=== PATIENT | female | born 1940 | race Caucasian/White ===

== ENCOUNTER → 2016-08-25 | Outpatient (CLI) | payer OTHER | LOC: FIMAGING 10:56 | DX: Z12.31 Encounter for screening mammogram for malignant neoplasm of breast (principal); Z80.3 Family history of malignant neoplasm of breast | CPT/HCPCS: G0202 ==

== ENCOUNTER 2016-11-04 12:37 | Emergency (ER) | payer OTHER ==
[2016-11-04 13:01] VITALS: BP 179/94; PULSE 87; RESP 18; TEMP 97.2; O2SAT 92
--- NOTE | 2016-11-04 14:02 | EDPHY ---
H & P Time Seen by Provider: 11/04/16 13:45 HPI/ROS: This patient complains of left trapezius and rhomboid region pain extending to the left lateral neck over the past week since having a dry saline which she was lifting multiple objects. She reports that the pain is moderate to severe and she is having insufficient relief from Tylenol and ibuprofen. She does have Dilaudid at home that she occasionally takes for her neck pain associated with arthritis but she prefers not to take if she does not have to. She has not taken any today. She does report some occasional paresthesias in left arm associated with this. She denies any acute trauma. ROS: No recent head injury Musculoskeletal: No midline neck or back pain. Neuro: No focal weakness. No numbness. No bowel or bladder incontinence. 5 point ROS is otherwise negative. Smoking Status: Never smoked Physical Exam: Physical Exam Vital signs are normal. General: No acute distress HEENT: Atraumatic. No cranial tenderness. Neck: No midline tenderness. She has left trapezius tenderness and muscle spasm extends in left lateral paraspinous cervical musculature. This also extends inferiorly to the rhomboid region. No right-sided neck tenderness. She retains good range of motion of her neck and has mild increase in pain with forward flexion and lateral flexion away from the affected side. Eyes: Pupils equal and react to light. Extraocular motions are intact. Lungs: No respiratory distress. Cardiac: Brisk capillary refill is intact throughout. Pulses are 2+ and symmetric in the affected extremity. Skin: No rash or pallor. Neuro: GCS 15. Despite paresthesias left arm she has normal sensation throughout. She has weak but symmetric biceps, triceps and brachioradialis DTRs bilaterally. Patellar DTRs are difficult to elicit part from knee replacement surgery. Achilles are weak but symmetric bilaterally she maintains 5/5 strength in bilateral upper and lower extremities throughout Initial differential diagnosis: Muscle strain, chronic arthritic neck pain worsen with activity, disc herniation, no evidence of cauda equina Constitutional: Initial Vital Signs Temperature (C) 36.2 C 11/04/16 12:45 Heart Rate 87 11/04/16 12:45 Respiratory Rate 18 11/04/16 12:45 Blood Pressure 179/94 H 11/04/16 12:45 O2 Sat (%) 92 11/04/16 12:45 O2 Delivery Mode Room Air Allergies/Adverse Reactions: Antihistamines - Piperazine Allergy (Verified 11/04/16 12:57) dicyclomine HCl [From Bentyl] Allergy (Verified 11/04/16 12:57) Sulfa (Sulfonamide Antibiotics) Allergy (Verified 11/04/16 12:57) ANTIBIOTICS Allergy (Uncoded 11/04/16 12:57) narcotics Allergy (Uncoded 11/04/16 12:57) Home Medications: Medication Instructions Recorded Amitriptyline 04/03/10 DIAZEPAM 04/03/10 PROPRANOLOL HCL 04/03/10 Synthroid 04/03/10 Dilaudid 11/04/16 Methocarbamol [Robaxin 750 mg (*)] 750 - 1,500 mg PO QID PRN #30 tab 11/04/16 MDM/Departure - [facility] ED Course/Re-evaluation: Given this patient's history and findings are most consistent with muscle strain. I counseled regarding this. We discussed the possibility of pursuing radiographs but without acute trauma and no midline tenderness, no focal neuro deficits I think this would be low yield. Patient agrees to hold on imaging at this time with plan to follow up with her back specialist/neck specialist Dr. Altman for further evaluation if her symptoms not resolve with initial treatment plan of Robaxin, ibuprofen and Dilaudid. - Depart Disposition: Home, Routine, Self-Care Clinical Impression: Strain of neck Qualifiers: Encounter type: initial encounter Qualified Code(s): S16.1XXA - Strain of muscle, fascia and tendon at neck level, initial encounter Condition: Good Instructions: Cervical Strain (ED) Additional Instructions: Diagnosis: Neck strain Plan: Continue Tylenol-500 mg per 4-6 hours as needed for pain Add methocarbamol muscle relaxant, ibuprofen-400 mg per 6 hours to 3 times a day and finally Dilaudid in addition if needed. No driving, alcohol work on Robaxin or Dilaudid. Call Dr. Altman to arrange follow-up appointment for recheck in 3-7 days. Go to the emergency department for any significant worsening despite treatment plan. Prescriptions: Methocarbamol [Robaxin 750 mg (*)] 750 - 1,500 mg PO QID PRN #30 tab PRN Reason: Muscle Spasms Referrals: Jacquie Nicolas MD [Primary Care Provider] - As per Instructions Marivel Altman DO [Doctor of Osteopathy] - As per Instructions
== END 2016-11-04 14:16 | disposition home or self-care (01) ==
LOC: CED 12:37
DX: S16.1XXA Strain of muscle, fascia and tendon at neck level, initial encounter (principal); X50.0XXA Overexertion from strenuous movement or load, initial encounter

== ENCOUNTER 2017-01-16 12:51 | Inpatient (IN) | payer OTHER ==
--- NOTE | 2017-01-16 13:05 | CPEKG ---
Heart Rate: 100 RR Interval: 600 P-R Interval: 156 QRSD Interval: 84 QT Interval: 344 QTC Interval: 444 P [place]: 61 QRS [place]: 9 T Wave [place]: 5 EKG Severity - OTHERWISE NORMAL ECG - EKG Impression: SINUS TACHYCARDIA Electronically Signed By: Michelle Stroud 16-Jan-2017 14:46:43
--- NOTE | 2017-01-16 13:17 | EDPHY ---
H & P Time Seen by Provider: 01/16/17 12:58 HPI/ROS: HPI Chest and back pain, shortness of breath. 76-year-old female by private vehicle with her friend. This patient reports that Saturday evening she help to lift her disabled son who weighs approximately 400 lb off a couch. She takes care of her son at her house. She reports that Saturday she woke up and had which she describes as chest pain going from her clavicles down both sides of her lateral rib cage and radiating into the lateral posterior aspect of both sides of her back. She reports the pain is worse with movement and worse with taking a deep breath. She also reports that she has had some shortness of breath associated with this pain. She reports the pain is also worse with exertion and describes today she has had a sensation of pain radiating up into her anterior neck and jaw both on the right side and the left side. There is no history of fall or trauma. She reports having this pain about 2 weeks ago but was not as bad and it went away. At that time 2 weeks ago there was no history of heavy lifting. ROS: Constitutional: No fever, no chills. No weakness. Eyes: No discharge. No changes in vision. ENT: No sore throat. No nasal congestion or rhinorrhea. Respiratory: No cough. As above. Cardiac: As above, no palpitations. Gastrointestinal: No abdominal pain, no vomiting, no diarrhea. Genitourinary: No hematuria. No dysuria or increased frequency with urination. Musculoskeletal: No back pain. No neck pain. No myalgias or arthralgias. Skin: No rashes. Neurological: No headache. No focal weakness or altered sensation. Past medical history: Hypertension, knee replacement, SVT, hysterectomy, left carpal tunnel surgery, hypothyroidism, hyperparathyroidism, vertebral compression fracture. Primary care physician is Dr. Altman. Social history: Lives with her disabled OB son. She denies alcohol and smoking. Physical Exam: General Appearance: Alert, no distress. This patient is responding to questions appropriately and in full sentences. This patient appears well- hydrated and well-nourished. Eyes: Pupils equal and round no pallor or injection. No lid edema, erythema or injection. Respiratory: There are no retractions, lungs are clear to auscultation anteriorly with good air movement bilaterally. Mild tachypnea. Chest wall is stable to AP and lateral palpation. Cardiovascular: Regular rate and rhythm. Tachycardia. No murmur. Gastrointestinal: Abdomen is soft and nontender, no masses, bowel sounds normal. No focal tenderness at McBurney's point. No Magaña sign. Neurological: Motor sensory function is grossly intact. Cranial nerves are normal. Gait is normal. Skin: Warm and dry, no rashes. Musculoskeletal: Neck is supple and nontender. No pain on flexion of the neck. Extremities are symmetrical. All joints range without pain or impingement. Psychiatric: No agitation. No depression. Database: EKG: EKG time is 1:04 p.m.; EKG shows a narrow complex sinus tachycardia with ventricular rate of 100. The SD, QRS, QT intervals are within normal limits. There are no ST-T wave changes indicative of ischemic or injury pattern. No evidence of right heart strain. Interpreted by me. EKG time is 2:06 p.m.; EKG shows a narrow complex normal sinus rhythm with a ventricular rate of 92. The SD, QRS, QT intervals are within normal limits. Borderline T-wave abnormalities in inferior leads There are no ST-T wave changes indicative of ischemic or injury pattern. No evidence of right heart strain. This EKG is otherwise unchanged from prior. Interpreted by me. Imaging: Chest x-ray AP portable; the cardiac mediastinal silhouette is unremarkable. No evidence of infiltrate or pneumothorax. Basilar atelectasis on the left versus small effusion. No acute cardiopulmonary disease process noted. Interpreted by me. CT angiogram of chest; no evidence of pulmonary embolism. Emphysema noted. Bibasilar atelectasis. Otherwise unremarkable. Results were discussed with staff radiologist Dr. Rudolph Bennett. Procedures: Emergency department course: IV placed. She was placed on a cotton tipper. Chest x-ray and EKG obtained and reviewed by myself. 1:45 p.m., D-dimer elevated, CT angiogram of chest discussed with patient. She endorses. She will be given 500 cc of IV normal saline. 2:00 p.m., patient re-evaluated. She is currently pain-free. I discussed the results of her elevated troponin and the definite need for admission. She endorses. She has been given 324 mg of chewed aspirin. I will consult with hospitalist regarding IV heparin prior to transfer. EKG is being repeated at this time. 2:15 p.m., spoke with hospitalist, Dr. Flanagan. Patient accepted for transfer and admission to the PCU under the care of the hospitalist service. Heparin will be held until patient evaluated by Dr. Flanagan. Patient is chest pain- free. Patient transferred by ambulance in stable condition. 2:50 p.m., results of CT angiogram discussed with Dr. Flanagan. Patient is currently chest pain-free. Vital signs are stable. Patient transferred by ambulance in stable condition. Differential Diagnosis: The differential diagnosis on this patient includes but is not limited to musculoskeletal chest pain, pulmonary embolism, acute coronary syndrome. Aortic dissection, myocarditis, pericarditis, pneumonia, congestive heart failure unlikely. This represents a partial list of diagnoses considered. These considerations are based on history, physical exam, past history, reassessment and diagnostic testing. Smoking Status: Never smoked Constitutional: Initial Vital Signs Temperature (C) 37.1 C 01/16/17 13:04 Heart Rate 71 01/16/17 13:04 Respiratory Rate 18 01/16/17 13:04 Blood Pressure 185/57 H 01/16/17 13:04 O2 Sat (%) 97 01/16/17 13:04 O2 Delivery Mode Room Air O2 (L/minute) 2 Allergies/Adverse Reactions: Antihistamines - Piperazine Allergy (Verified 11/04/16 12:57) dicyclomine HCl [From Bentyl] Allergy (Verified 11/04/16 12:57) Sulfa (Sulfonamide Antibiotics) Allergy (Verified 11/04/16 12:57) ANTIBIOTICS Allergy (Uncoded 11/04/16 12:57) narcotics Allergy (Uncoded 11/04/16 12:57) Home Medications: Medication Instructions Recorded Amitriptyline 04/03/10 DIAZEPAM 04/03/10 PROPRANOLOL HCL 04/03/10 Synthroid 04/03/10 Dilaudid 11/04/16 Methocarbamol [Robaxin 750 mg (*)] 750 - 1,500 mg PO QID PRN #30 tab 11/04/16 Medical Decision Making - Diagnostics Imaging Results: Imaging Impressions Chest X-Ray 01/16/17 13:01 Impression: Hypoventilatory chest with probable bibasilar atelectasis. Chest/Thorax CTA 01/16/17 13:44 Impression: 1. Negative CT examination of the chest for acute pulmonary thromboembolic disease. 2. Bilateral lower lobe atelectasis. 3. Focal reticular nodular infiltrate right upper lobe suggestive of ANGELIQUE. 4. Small hiatal hernia. Results called to Dr. Michelle Young at 2:45 p.m. at the time of the interpretation. - Data Points Laboratory Results: Laboratory Results 01/16/17 13:10 01/16/17 13:10 01/16/17 01/16/17 01/16/17 13:10 13:10 13:10 WBC 12.34 10^3/uL H 10^3/uL (3.80-9.50) RBC 4.46 10^6/uL 10^6/uL (4.18-5.33) Hgb 12.2 g/dL L g/dL (12.6-16.3) Hct 36.6 % L % (38.0-47.0) MCV 82.1 fL fL (81.5-99.8) MCH 27.4 pg L pg (27.9-34.1) MCHC 33.3 g/dL g/dL (32.4-36.7) RDW 14.8 % % (11.5-15.2) Plt Count 257 10^3/uL 10^3/uL (150-400) MPV 10.1 fL fL (8.7-11.7) Neut % (Auto) 77.3 % H % (39.3-74.2) Lymph % (Auto) 12.5 % L % (15.0-45.0) [place] % (Auto) 8.6 % % (4.5-13.0) Eos % (Auto) 0.8 % % (0.6-7.6) Baso % (Auto) 0.3 % % (0.3-1.7) Nucleat RBC Rel Count 0.0 % % (0.0-0.2) Absolute Neuts (auto) 9.54 10^3/uL H 10^3/uL (1.70-6.50) Absolute Lymphs (auto) 1.54 10^3/uL 10^3/uL (1.00-3.00) Absolute Monos (auto) 1.06 10^3/uL H 10^3/uL (0.30-0.80) Absolute Eos (auto) 0.10 10^3/uL 10^3/uL (0.03-0.40) Absolute Basos (auto) 0.04 10^3/uL 10^3/uL (0.02-0.10) Absolute Nucleated RBC 0.00 10^3/uL 10^3/uL (0-0.01) Immature Gran % 0.5 % % (0.0-1.1) Immature Gran # 0.06 10^3/uL 10^3/uL (0.00-0.10) PT 15.0 SEC SEC (12.0-15.0) INR 1.21 H (0.83-1.16) APTT 37.9 SEC SEC (23.0-38.0) D-Dimer 0.83 ug/mLFEU H ug/mLFEU (0.00-0.50) Sodium 137 mEq/L mEq/L (134-144) Potassium 3.4 mEq/L L mEq/L (3.5-5.2) Chloride 101 mEq/L mEq/L (97-110) Carbon Dioxide 25 mEq/l mEq/l (22-31) Anion Gap 11 mEq/L mEq/L (8-16) BUN 13 mg/dL mg/dL (7-23) Creatinine 0.7 mg/dL mg/dL (0.6-1.0) Estimated GFR > 60 Glucose 163 mg/dL H mg/dL (70-100) Calcium 8.5 mg/dL mg/dL (8.5-10.4) Creatine Kinase 60 IU/L IU/L (0-156) CK-MB (CK-2) Fraction 0.93 ng/mL ng/mL (0-4.55) Troponin I 0.359 ng/mL H ng/mL (0-0.034) NT-Pro-B Natriuret Pep 937 pg/mL H pg/mL (0-450) Medications Given: Discontinued Medications Aspirin (Aspirin) 324 mg PO EDNOW ONE Stop: 01/16/17 14:05 Last Admin: 01/16/17 14:10 Dose: 324 mg Sodium Chloride (Ns) 500 mls @ 0 mls/hr IV ONCE ONE; Wide Open PRN Reason: Protocol Stop: 01/16/17 13:46 Last Admin: 01/16/17 13:52 Dose: 500 mls Ondansetron HCl (Zofran) 4 mg IVP EDNOW ONE Stop: 01/16/17 14:28 Last Admin: 01/16/17 14:32 Dose: 4 mg Departure - Departure Disposition: [facility] Inpatient Acute Clinical Impression: Chest pain, Dyspnea, Elevated troponin
[2017-01-16 13:21] LABS: % IMMATURE GRANULYOCYTES 0.5 % (0.0-1.1); ABSOLUTE IMMATURE GRANULOCYTES 0.06 10^3/uL (0.00-0.10); ADD DIFF? NO; ADD MORPH? NO; ADD SCAN? NO; ATYPICAL LYMPHOCYTE FLAG 0 (0-99); FRAGMENT RBC FLAG 0 (0-99); HEMATOCRIT 36.6 % (38.0-47.0); HEMOGLOBIN 12.2 g/dL (12.6-16.3); LEFT SHIFT FLG 0 (0-99); LIPEMIA HEMOLYSIS FLAG 80 (0-99); MEAN CELL HEMOGLOBIN 27.4 pg (27.9-34.1); MEAN CELL HEMOGLOBIN CONCENTR. 33.3 g/dL (32.4-36.7); MEAN CELL VOLUME 82.1 fL (81.5-99.8); MEAN PLATELET VOLUME 10.1 fL (8.7-11.7); PLATELET CLUMPS FLAG 0 (0-99); PLATELET COUNT 257 10^3/uL (150-400); RED BLOOD CELL COUNT 4.46 10^6/uL (4.18-5.33); RED CELL DISTRIBUTION WIDTH 14.8 % (11.5-15.2)
[2017-01-16 13:36] LABS: INR 1.21 (0.83-1.16)
[2017-01-16 13:38] LABS: APTT 37.9 SEC (23.0-38.0)
[2017-01-16 13:39] LABS: ANION GAP 11 mEq/L (8-16); CALCIUM 8.5 mg/dL (8.5-10.4); CARBON DIOXIDE 25 mEq/l (22-31); CHLORIDE 101 mEq/L (97-110); CREATININE 0.7 mg/dL (0.6-1.0); GLOMERULAR FILTRATION RATE > 60; GLUCOSE 163 mg/dL (70-100); POTASSIUM 3.4 mEq/L (3.5-5.2); SODIUM 137 mEq/L (134-144)
[2017-01-16] MEDS ORDERED: NS 500 ML IV ONE (13:45)
[2017-01-16 13:54] LABS: CREATINE KINASE-MB FRACTION 0.93 ng/mL (0-4.55); TROPONIN I 0.359 ng/mL (0-0.034)
[2017-01-16] MEDS ORDERED: IOPAMIDOL (ISOVUE 370) 100 ML BTL IV ONE (13:57)
[2017-01-16] MEDS ORDERED: ASPIRIN 81 MG CHEWABLE TAB PO ONE (14:04)
--- NOTE | 2017-01-16 14:07 | CPEKG ---
Heart Rate: 92 RR Interval: 652 P-R Interval: 156 QRSD Interval: 86 QT Interval: 344 QTC Interval: 426 P [place]: 73 QRS [place]: 7 T Wave [place]: -13 EKG Severity - BORDERLINE ECG - EKG Impression: SINUS RHYTHM EKG Impression: LVH BY VOLTAGE EKG Impression: BORDERLINE T ABNORMALITIES, INFERIOR LEADS Electronically Signed By: Michelle Stroud 16-Jan-2017 14:46:43
[2017-01-16] MEDS ORDERED: ONDANSETRON 4 MG/2 ML VIAL IVP ONE (14:27)
[2017-01-16] MEDS ORDERED: ONDANSETRON DISINTEGRATING 4 MG TAB PO PRN (14:33)
[2017-01-16] MEDS ORDERED: ACETAMINOPHEN 325 MG TAB PO PRN (14:33)
[2017-01-16] MEDS ORDERED: ONDANSETRON 4 MG/2 ML VIAL IVP PRN (14:33)
--- NOTE | 2017-01-16 17:38 | PDGENHP ---
History and Physical - Chief Complaint Acute chest pain - History of Present Illness primary care provider: Dr. Nicolas Primary radiology special procedure tech: Dr. Navas HPI: 76-year-old female presents with acute chest pain characterized as an aching sensation located in her bilateral chest, initiating in her clavicles and radiating laterally and then of all the into neck and jaw discomfort with onset of symptoms 4 days prior to presentation. She reports that the pain has been exacerbated by movement, exertion, deep inspiration and has been associated with what she describes as a sweaty feeling. She reports that the pain is alleviated by Dilaudid as well as massage therapy provided by a relative. 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 She reports that 2 weeks ago she did experience a mild, self limited illness including viral symptoms and GI symptoms. She has been attempting to increase her physical activity and has not noted any recent reduction in exercise tolerance or chest pain when she engages in that physical activity. She does note that the pain is different from the lower back pain which she had previously experienced in the setting of an L1-L2 nerve sheath tumor. History Information - Allergies/Home Medication List Allergies/Adverse Reactions: Antihistamines - Piperazine Allergy (Verified 11/04/16 12:57) dicyclomine HCl [From Bentyl] Allergy (Verified 11/04/16 12:57) Sulfa (Sulfonamide Antibiotics) Allergy (Verified 11/04/16 12:57) ANTIBIOTICS Allergy (Uncoded 11/04/16 12:57) narcotics Allergy (Uncoded 11/04/16 12:57) Home Medications: Amitriptyline HCl [Elavil 50 mg (*)] 50 mg PO HS 04/03/10 [Last Taken 01/15/17] Diazepam [Valium 5 MG (*)] 2.5 mg PO DAILY PRN 04/03/10 [Last Taken Unknown] Levothyroxine [Synthroid 100 mcg (*)] 100 mcg PO DAILY06 04/03/10 [Last Taken ] Propranolol HCl [Inderal 20mg (*)] 10 - 20 mg PO DAILY 04/03/10 [Last Taken 08/03 10mg] HYDROmorphone HCL [Dilaudid 2 mg (*)] 1 - 2 mg PO Q6HRS PRN 11/04/16 [Last Taken 01/15/17 17:00] Dorzolamide 2% [Trusopt 2% (*)] 1 drops LEFTEYE BID 01/16/17 [Last Taken ] Herbals/Supplements -Info Only 1 ea PO DAILY 01/16/17 [Last Taken Unknown] Latanoprost 0.005% [Xalatan 0.005% (*)] 1 drops EACHEYE HS 01/16/17 [Last Taken 01/15/17] Multivitamins [Multivitamin (*)] 1 each PO DAILY 01/16/17 [Last Taken 01/15/17] I have personally reviewed and updated: family history, medical history, social history, surgical history - Past Medical History hypertension, hyperlipidemia Additional medical history: 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 Review of Systems ROS: 10pt was reviewed & negative except for what was stated in HPI & below Constitutional: Reports: other ( sweating) Cardiac: Reports: chest pain Muscolosketal: Reports: other ( upper back and shoulder pain) Physical Exam Temp Pulse Resp BP Pulse Ox 36.4 C 84 18 137/84 H 93 01/16/17 16:45 01/16/17 16:45 01/16/17 16:45 01/16/17 16:45 01/16/17 16:45 O2 (L/minute) 2 Constitutional: no apparent distress, appears nourished, not in pain Eyes: PERRL, anicteric sclera, EOMI Ears, Nose, Mouth, Throat: moist mucous membranes, hearing normal, ears appear normal, no oral mucosal ulcers Cardiovascular: regular rate and rhythym, systolic murmur ( 1/6 at the sternum) , No irregularly irregular, No tachycardia, No edema Respiratory: no respiratory distress, no rales or rhonchi, clear to auscultation Gastrointestinal: normoactive bowel sounds, soft, non-tender abdomen, no palpable masses Skin: other ( no vesicular lesions or rash over the anterior chest or shoulders) Musculoskeletal: other ( mild tenderness over the left sternocleidomastoid and left trapezius, without any pain on full range of motion of neck, full range of motion bilateral shoulders without any pain, no tenderness to palpation over the bilateral sub acromioclavicular joints) Neurologic: AAOx3, sensation intact bilaterally, No weakness Psychiatric: interacting appropriately, not anxious, not encephalopathic, thought process linear Lab Data & Imaging Review 01/16/17 13:10 01/16/17 13:10 WBC 12.34 10^3/uL (3.80-9.50) H 01/16/17 13:10 RBC 4.46 10^6/uL (4.18-5.33) 01/16/17 13:10 Hgb 12.2 g/dL (12.6-16.3) L 01/16/17 13:10 Hct 36.6 % (38.0-47.0) L 01/16/17 13:10 MCV 82.1 fL (81.5-99.8) 01/16/17 13:10 MCH 27.4 pg (27.9-34.1) L 01/16/17 13:10 MCHC 33.3 g/dL (32.4-36.7) 01/16/17 13:10 RDW 14.8 % (11.5-15.2) 01/16/17 13:10 Plt Count 257 10^3/uL (150-400) 01/16/17 13:10 MPV 10.1 fL (8.7-11.7) 01/16/17 13:10 Neut % (Auto) 77.3 % (39.3-74.2) H 01/16/17 13:10 Lymph % (Auto) 12.5 % (15.0-45.0) L 01/16/17 13:10 [place] % (Auto) 8.6 % (4.5-13.0) 01/16/17 13:10 Eos % (Auto) 0.8 % (0.6-7.6) 01/16/17 13:10 Baso % (Auto) 0.3 % (0.3-1.7) 01/16/17 13:10 Nucleat RBC Rel Count 0.0 % (0.0-0.2) 01/16/17 13:10 Absolute Neuts (auto) 9.54 10^3/uL (1.70-6.50) H 01/16/17 13:10 Absolute Lymphs (auto) 1.54 10^3/uL (1.00-3.00) 01/16/17 13:10 Absolute Monos (auto) 1.06 10^3/uL (0.30-0.80) H 01/16/17 13:10 Absolute Eos (auto) 0.10 10^3/uL (0.03-0.40) 01/16/17 13:10 Absolute Basos (auto) 0.04 10^3/uL (0.02-0.10) 01/16/17 13:10 Absolute Nucleated RBC 0.00 10^3/uL (0-0.01) 01/16/17 13:10 Immature Gran % 0.5 % (0.0-1.1) 01/16/17 13:10 Immature Gran # 0.06 10^3/uL (0.00-0.10) 01/16/17 13:10 PT 15.0 SEC (12.0-15.0) 01/16/17 13:10 INR 1.21 (0.83-1.16) H 01/16/17 13:10 APTT 37.9 SEC (23.0-38.0) 01/16/17 13:10 D-Dimer 0.83 ug/mLFEU (0.00-0.50) H 01/16/17 13:10 Sodium 137 mEq/L (134-144) 01/16/17 13:10 Potassium 3.4 mEq/L (3.5-5.2) L 01/16/17 13:10 Chloride 101 mEq/L (97-110) 01/16/17 13:10 Carbon Dioxide 25 mEq/l (22-31) 01/16/17 13:10 Anion Gap 11 mEq/L (8-16) 01/16/17 13:10 BUN 13 mg/dL (7-23) 01/16/17 13:10 Creatinine 0.7 mg/dL (0.6-1.0) 01/16/17 13:10 Estimated GFR > 60 01/16/17 13:10 Glucose 163 mg/dL (70-100) H 01/16/17 13:10 Calcium 8.5 mg/dL (8.5-10.4) 01/16/17 13:10 Creatine Kinase 60 IU/L (0-156) 01/16/17 13:10 CK-MB (CK-2) Fraction 0.93 ng/mL (0-4.55) 01/16/17 13:10 Troponin I 0.359 ng/mL (0-0.034) H 01/16/17 13:10 NT-Pro-B Natriuret Pep 937 pg/mL (0-450) H 01/16/17 13:10 Visualized and Interpreted Chest x-ray results: Yes Chest X-Ray results: other ( hypoventilation, atelectasis) Visualized and Interpreted EKG results: Yes EKG Interpretation: Positive for: normal sinsus rhythm ( with T-wave inversion in lead 3 and AVF) Assessment & Plan Assessment: 76-year-old female presents with acute chest and shoulder pain in the setting of recent physical strain, found to have abnormal troponin level Plan: 1. Chest pain. Acute, new from this provider, further workup indicated. Potential etiologies include obstructive coronary disease, pericarditis, polymyalgia rheumatica, muscular strain -given patient's abnormal troponin level, repeat troponin level now and if down trending, perform treadmill nuclear stress test in a.m. -given patient's elevated white blood cell count and distribution of muscular discomfort, get inflammatory markers to further evaluate for autoimmune issue -given patient's recent viral illness and elevated troponin level, get echocardiogram to evaluate for pericardial effusion and consider pericarditis -hold on nonsteroidal anti-inflammatory medications for pain management until stress test has been performed -discussed with Dr. Stroud, he has reported to me that the CT angiogram demonstrates no evidence of pulmonary embolism -given the possibility of obstructive coronary disease, will continue aspirin and beta-demond, reassess if chest pain at rest 2. Chronic lower back pain. Reviewed outside records including 05/08/2016 thoracic spine MRI demonstrating L1 compression fracture, compression fractures at T9-11, previously identified L1-L2 nerve sheath tumor -continue Tylenol 3. Hypertension. Chronic, continue home medications Diet. Cardiac, NPO after midnight for stress test Prophylaxis. Moderate risk patient, Lovenox 40 Code. Full Disposition. Anticipated discharge is 01/17/2017, pending further workup as outlined above.
[2017-01-16] MEDS ORDERED: HYDROmorphONE/DILAUDID 2 MG TAB PO PRN (17:43)
[2017-01-16] MEDS ORDERED: METHOCARBAMOL 750 MG TAB PO PRN (17:43)
[2017-01-16] MEDS ORDERED: DIAZEPAM 5 MG TAB PO PRN (17:43)
[2017-01-16] MEDS: METOPROLOL TARTRATE 25 MG TAB PO SCH (18:21)
[2017-01-16] MEDS: AMITRIPTYLINE HCL 25 MG TAB PO SCH (20:27)
[2017-01-16] MEDS: DORZOLAMIDE 2% OPTH DROPS LEFTEYE SCH (20:30)
[2017-01-16] MEDS ORDERED: LATANOPROST 0.005% 2.5 ML OPHT DROPS EACHEYE SCH (21:00)
[2017-01-17] MEDS: METOPROLOL TARTRATE 25 MG TAB PO SCH ×3 (00:09→20:35)
[2017-01-17 04:17] LABS: % IMMATURE GRANULYOCYTES 0.4 % (0.0-1.1); ABSOLUTE IMMATURE GRANULOCYTES 0.04 10^3/uL (0.00-0.10); ADD DIFF? NO; ADD MORPH? NO; ADD SCAN? NO; ATYPICAL LYMPHOCYTE FLAG 0 (0-99); FRAGMENT RBC FLAG 0 (0-99); HEMATOCRIT 35.3 % (38.0-47.0); HEMOGLOBIN 11.4 g/dL (12.6-16.3); LEFT SHIFT FLG 0 (0-99); LIPEMIA HEMOLYSIS FLAG 80 (0-99); MEAN CELL HEMOGLOBIN 27.7 pg (27.9-34.1); MEAN CELL HEMOGLOBIN CONCENTR. 32.3 g/dL (32.4-36.7); MEAN CELL VOLUME 85.7 fL (81.5-99.8); MEAN PLATELET VOLUME 10.2 fL (8.7-11.7); PLATELET CLUMPS FLAG 0 (0-99); PLATELET COUNT 233 10^3/uL (150-400); RED BLOOD CELL COUNT 4.12 10^6/uL (4.18-5.33)
[2017-01-17 04:40] LABS: ALANINE AMINOTRANSFERASE 29 IU/L (9-52); ALBUMIN 3.1 g/dL (3.5-5.0); ALKALINE PHOSPHATASE 71 IU/L (38-126); ANION GAP 9 mEq/L (8-16); ASPARTATE AMINOTRANSFERASE 28 IU/L (14-46); BILIRUBIN,TOTAL 0.8 mg/dL (0.1-1.4); CALCIUM 8.5 mg/dL (8.5-10.4); CARBON DIOXIDE 25 mEq/l (22-31); CHLORIDE 108 mEq/L (97-110); CHOLESTEROL 154 mg/dL (140-220); CREATININE 0.8 mg/dL (0.6-1.0); GLOMERULAR FILTRATION RATE > 60; GLUCOSE 101 mg/dL (70-100); HIGH DENSITY LIPOPROTEIN 35 mg/dL (40-85); LOW DENSITY LIPOPROTEIN 105 mg/dL (80-100); MAGNESIUM 2.3 mg/dL (1.6-2.3); NON-HIGH DENSITY LIPOPROTEIN 119 mg/dL (90-129); SODIUM 142 mEq/L (134-144); TOTAL PROTEIN 5.9 g/dL (6.3-8.2); TRIGLYCERIDE 71 mg/dL (35-135); VERY LOW DENSITY LIPOPROTEINS 14 mg/dL (8-25)
[2017-01-17 04:46] LABS: TROPONIN I 0.852 ng/mL (0-0.034)
[2017-01-17 04:53] LABS: C-REACTIVE PROTEIN 207.7 mg/L (<10.0)
[2017-01-17 05:00] LABS: SEDIMENTATION RATE 45 MM/HR (0-30)
[2017-01-17] MEDS: LEVOTHYROXINE 100 MCG TAB PO SCH (06:47)
[2017-01-17] MEDS ORDERED: Herbals/Supplements -Info Only PO SCH (09:00)
--- NOTE | 2017-01-17 09:38 | CPEKG ---
Heart Rate: 77 RR Interval: 779 P-R Interval: 148 QRSD Interval: 78 QT Interval: 380 QTC Interval: 431 P [place]: 68 QRS [place]: 22 T Wave [place]: -8 EKG Severity - BORDERLINE ECG - EKG Impression: SINUS RHYTHM EKG Impression: BORDERLINE T ABNORMALITIES, INFERIOR LEADS Electronically Signed By: Patrick Barboza 17-Jan-2017 17:37:17
[2017-01-17] MEDS ORDERED: DOCUSATE SODIUM 100 MG CAP PO PRN (09:45)
[2017-01-17] MEDS ORDERED: POLYETHYLENE GLYCOL 3350 17 GM PKT PO PRN ×2 (09:45→09:52)
[2017-01-17] MEDS ORDERED: MAGNESIUM HYDROXIDE 30 ML UDCUP PO PRN (09:52)
[2017-01-17] MEDS ORDERED: BISACODYL 10 MG SUPP PR PRN (09:52)
[2017-01-17] MEDS ORDERED: LACTULOSE 20 GM/30 ML UDCUP PO PRN (09:52)
[2017-01-17 10:16] LABS: HEMOGLOBIN A1C 6.2 % (4.0-6.0)
[2017-01-17] MEDS: MULTIVITAMINS 1 EACH TAB PO SCH (10:21)
[2017-01-17] MEDS: ASPIRIN EC 325 MG TAB PO SCH (10:21)
[2017-01-17] MEDS: ENOXAPARIN 40 MG/0.4 ML SYR SC SCH (10:29)
[2017-01-17] MEDS: DORZOLAMIDE 2% OPTH DROPS LEFTEYE SCH ×2 (10:29→20:37)
--- NOTE | 2017-01-17 11:44 | ECHO ---
[id number] + + [id number] : : [place] [address] : : [phone] + + Adult Echocardiographic Report + ----+ :Name: MURRAY MUNIZ Catherineudyoseph Date: 01/17/2017 08:02 AM : : Hospital Admission Number: [id number] Location: 221: :: 1940 Gender: Female Height: 67 in : :Age: 76 yrs Race: WH Weight: 188 lb : :Reason For Study: Eval for pericarditis : : BSA: 2.0 meters2 : + ----+ MMode/2D Measurements \T\ Calculations IVSd: 1.1 cm LVIDd: 4.8 cm FS: 37.1 % Ao root diam: LVPWd: 1.0 cm LVIDs: 3.0 cm EDV(Teich): 3.3 cm 106.0 ml LA dimension: ESV(Teich): 3.8 cm 35.0 ml EF(Teich): 67.0 % LVLd ap4: 7.4 cm SV(MOD-sp4): EDV(MOD-sp4): 33.0 ml 53.0 ml LVLs ap4: 6.1 cm ESV(MOD-sp4): 20.0 ml EF(MOD-sp4): 62.3 % Normal Measurement Values: + + :LVIDd (3.5-5.7cm) IVSd (0.6-1.1cm) LVPWd (0.6-1.1cm) Aortic Root (2.0-3.7cm)Left Atrium (1.5-4.0cm): :LV Vol(d) (76-115ml) LV Vol(s) (29-48ml) Ejec Fraction (50-65%)PV Tu (0.6- 1.2m/s) TV Tu (0.4-1.0m/s) : :MV E Tu (0.8-1.0m/s)MV A Tu (0.3-1.0m/s)LVOT Tu (0.7-1.2m/s) Asc Ao Tu ( 0.9-1.8m/s) : + + Doppler Measurements \T\ Calculations MV E max tu: 65.6 cm/sec Ao mean P.2 mmHg TR max tu: 221.3 cm/sec MV A max tu: 58.2 cm/sec Ao V2 mean: 97.4 cm/sec TR max P.6 mmHg MV E/A: 1.1 Ao V2 VTI: 26.1 cm RAP systole: 5.0 mmHg RVSP(TR): 24.6 mmHg Left Ventricle The left ventricle is normal in size. There is mild concentric left ventricular hypertrophy. Left ventricular systolic function is normal. Ejection Fraction = 65-70%. No regional wall motion abnormalities noted. Right Ventricle The right ventricle is normal in size and function. Atria The left atrium is mildly dilated. Right atrial size is normal. Mitral Valve The mitral valve is normal in structure and function. There is no evidence of mitral valve prolapse. There is no mitral valve stenosis. There is mild mitral regurgitation. Tricuspid Valve Normal tricuspid valve. There is trace tricuspid regurgitation. Right ventricular systolic pressure is normal. Aortic Valve The aortic valve is not well visualized. There is no aortic stenosis. There is no aortic insufficiency. Pulmonic Valve The pulmonic valve is not well visualized. There is no pulmonic valvular regurgitation. Great Vessels The aortic root is normal size. Pericardium/Pleural Small anterior pericardial effusion with echogenicity within. Left pleural effusion. Conclusion A complete two-dimensional transthoracic echocardiogram was performed (2D, M-mode, Doppler and color flow Doppler). 1. The left ventricle is normal in size. There is mild concentric left ventricular hypertrophy. The Ejection Fraction = 65-70%. 2. The mitral valve is normal in structure and function. There is mild mitral regurgitation. 3. The aortic valve is not well visualized. There is no aortic stenosis. There is no aortic insufficiency. 4. Right ventricular systolic pressure is normal. 5. Small anterior pericardial effusion with echogenicity within. 6. Left pleural effusion. 7. No old studies for comparison. Final Reading Physician: Patrick Barboza MD electronically signed on 01/17/2017 11:43 AM Ordering Physician: Patrick Flanagan Performed By: Anne Marie Patel [facility]
--- NOTE | 2017-01-17 14:44 | HOSPPROG ---
Hospitalist Progress Note Assessment/Plan: 76 yo F with PMH of HTN, SVT, nerve sheath tumor presenting with chest pain in setting of presumed pericarditis # chest pain: with elevated troponin and significantly positional component to pain. Echo with pericardial effusion and presume 2/2 pericarditis as next # pericarditis: noted to have pericardial effusion with associated echogenicity in setting of elevated trop and positional chest pain. ECG personally reviewed/ interpreted and noted to have T wave flattening inferiorly. Discussed with cardiology, plan for now to treat with ibuprofen. Comment of echogenicity associated with pleural effusion however chest CTA performed yesterday not showing any ct evidence of irregularity of pericardium etc. # RUL infiltrate: focal area noted by radiology, personally reviewed and subtle. Possible c/w ANGELIQUE. No acute respiratory complaints although patient does comment on low grade fever for several month. Will monitor and likely recommend op f/u but will d/w pulmonary. 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 Old records reviewed and summarized as above. Care plan reviewed with Cardiology as above. Subjective: no significant overnight events, pain continues but improved from prior, worst when sitting up, no sob, no cough, has had intermittent fevers Objective: Vital Signs Temp Pulse Resp BP Pulse Ox 37.3 C 93 20 124/72 H 94 01/17/17 11:10 01/17/17 11:10 01/17/17 11:10 01/17/17 11:10 01/17/17 11:10 Laboratory Results 01/17/17 03:54 01/17/17 03:54 01/16/17 01/17/17 01/18/17 05:59 05:59 05:59 Intake Total 850 Balance 850 PT 15.0 SEC (12.0-15.0) 01/16/17 13:10 INR 1.21 (0.83-1.16) H 01/16/17 13:10 awake alert nad anicteric op clear rrr no mrg ctab soft nt nd no cce warm dry well perfused oriented appropriate ICD10 Worksheet Patient Problems: Problems Problem Status Onset Chest pain Acute Dyspnea Acute Elevated troponin Acute
[2017-01-17] MEDS: IBUPROFEN 600 MG TAB PO SCH ×2 (16:18→21:38)
[2017-01-17] MEDS: PROPRANOLOL HCL 20 MG TAB PO SCH (16:18)
[2017-01-17] MEDS: AMITRIPTYLINE HCL 25 MG TAB PO SCH (20:35)
[2017-01-17] MEDS: SENNOSIDES/DOCUSATE SODIUM TAB PO SCH (20:35)
[2017-01-17] MEDS ORDERED: LATANOPROST 0.005% 2.5 ML OPHT DROPS EACHEYE SCH (21:00)
[2017-01-18 04:16] LABS: % IMMATURE GRANULYOCYTES 0.5 % (0.0-1.1); ABSOLUTE IMMATURE GRANULOCYTES 0.04 10^3/uL (0.00-0.10); ADD DIFF? NO; ADD MORPH? NO; ADD SCAN? NO; ATYPICAL LYMPHOCYTE FLAG 10 (0-99); FRAGMENT RBC FLAG 0 (0-99); HEMATOCRIT 33.5 % (38.0-47.0); HEMOGLOBIN 10.8 g/dL (12.6-16.3); LEFT SHIFT FLG 0 (0-99); LIPEMIA HEMOLYSIS FLAG 80 (0-99); MEAN CELL HEMOGLOBIN 27.7 pg (27.9-34.1); MEAN CELL HEMOGLOBIN CONCENTR. 32.2 g/dL (32.4-36.7); MEAN CELL VOLUME 85.9 fL (81.5-99.8); MEAN PLATELET VOLUME 10.1 fL (8.7-11.7); PLATELET CLUMPS FLAG 10 (0-99); PLATELET COUNT 253 10^3/uL (150-400)
[2017-01-18 04:37] LABS: ANION GAP 9 mEq/L (8-16); CALCIUM 8.7 mg/dL (8.5-10.4); CARBON DIOXIDE 27 mEq/l (22-31); CHLORIDE 102 mEq/L (97-110); CREATININE 0.9 mg/dL (0.6-1.0); GLOMERULAR FILTRATION RATE > 60; GLUCOSE 97 mg/dL (70-100); POTASSIUM 3.7 mEq/L (3.5-5.2); SODIUM 138 mEq/L (134-144)
[2017-01-18] MEDS: LEVOTHYROXINE 100 MCG TAB PO SCH (06:13)
[2017-01-18 07:18] VITALS: BP 128/71; PULSE 74; RESP 15; TEMP 98; O2SAT 95
[2017-01-18] MEDS: ENOXAPARIN 40 MG/0.4 ML SYR SC SCH (08:02)
[2017-01-18] MEDS: PROPRANOLOL HCL 20 MG TAB PO SCH (08:04)
[2017-01-18] MEDS: SENNOSIDES/DOCUSATE SODIUM TAB PO SCH (08:06)
[2017-01-18] MEDS: METOPROLOL TARTRATE 25 MG TAB PO SCH (08:07)
[2017-01-18] MEDS: IBUPROFEN 600 MG TAB PO SCH (08:08)
[2017-01-18] MEDS: MULTIVITAMINS 1 EACH TAB PO SCH (08:08)
[2017-01-18] MEDS: ASPIRIN EC 325 MG TAB PO SCH (08:09)
[2017-01-18] MEDS: DORZOLAMIDE 2% OPTH DROPS LEFTEYE SCH (08:10)
[2017-01-18] MEDS ORDERED: PANTOPRAZOLE SODIUM 40 MG TAB PO SCH (09:00)
--- NOTE | 2017-01-18 11:15 | PDDCSUM ---
Discharge Summary Discharge Summary: Dates of service 01/16-01/18/17 Discharge dx: # myopericarditis # chest pain # RUL infiltrate # htn # chronic back pain Hospital course by problem: 76 yo F with PMH of HTN, SVT, nerve sheath tumor presenting with chest pain in setting of presumed pericarditis # chest pain: with elevated troponin and significantly positional component to pain. Echo with pericardial effusion and presume 2/2 pericarditis as next # myopericarditis: noted to have pericardial effusion with associated echogenicity in setting of elevated trop and positional chest pain. Improved significantly with NSAIDs, plan to continue ibuprofen, f/u with cardiology in one week for repeat echo and f/u/. # RUL infiltrate: focal area noted by radiology, personally reviewed and subtle. Possibly c/w ANGELIQUE. No acute respiratory complaints although patient does comment on low grade fever for several month. She is followed by Dr. Hendricks of pulmonary and recommended that she f/u with him within the next month and determine if appropriate to continue monitoring and serial imaging versus more aggressive w/u needed. 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
--- NOTE | 2017-01-18 12:48 | GCON ---
[f rep st] CONSULTATION DATE OF CONSULTATION: 01/18/2017 CHIEF COMPLAINT: We have been asked by Dr. Flanagan to evaluate Mrs. Cervantes with a chief complaint of chest pain. HISTORY OF PRESENT ILLNESS: Mrs. Cervantes is a 76-year-old female with risk factors including age, hyp ertension, and hyperlipidemia, who presents with a chief complaint of chest pain. The patient was i n her usual state of health until approximately 2 weeks prior to admission when she came down with a gastrointestinal illness and fever. Her symptoms lasted for several days and then resolved. Short ly after this, she began to experience symptoms of chest pain. The chest pain was described as an a amelia in the center of her chest extending up into her neck. The chest discomfort was associated with diaphoresis, but not nausea and vomiting. The chest discomfort was worse with inspiration and when lying back in bed. After several days of having the chest discomfort and having it not resolve, arline story was urged by family members to seek further evaluation. She presented to the emergency department where she had an EKG performed demonstrating no acute ST or T-wave changes. Her initial troponin w as mildly elevated. The patient subsequently underwent a CT angiogram of the chest to rule out pulm onary embolism. The CT angiogram of the chest demonstrated no evidence of pulmonary embolus. The p atient was noted to have a 5 mm lung nodule as well as a focal reticular nodular infiltrate in the r ight upper lobe suggestive of ANGELIQUE. We have been consulted to help in the further management of this patient. The patient denies a previous history of coronary artery disease. She remains moderately active and denies symptoms with activity until her most recent event. In June 2014, she did und ergo stress testing which demonstrated no evidence of ischemia or infarction. The patient does have a previous history of SVT and is status post ablation. She denies symptoms of palpitations, orthop jaja, and PND. Patient has continued to have intermittent chest pain with deep inspiration. PAST MEDICAL HISTORY: 1. SVT. 2. Hypertension. 3. Hyperlipidemia. 4. 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 5. Status post knee surgery. MEDICATIONS: Please see medicine reconciliation form. ALLERGIES: 1. Piperazine. 2. Dicyclomine. 3. Sulfa. 4. Adverse drug reaction to narcotics. 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 She does not smoke. She has bee n under a fair amount of stress recently with the loss of her daughter and taking care of her son wh o had a stroke. FAMILY HISTORY: Notable for coronary artery disease. REVIEW OF SYSTEMS: Ten-point review of systems is negative except as noted in HPI. PHYSICAL EXAMINATION: GENERAL: Patient is resting comfortably in bed. VITAL SIGNS: Temperature i s afebrile, pulse is 64, blood pressure 111/60, respiratory rate is 16, SaO2 is 94% on nasal cannula . HEENT: Normocephalic, atraumatic. Extraocular muscles intact. NECK: No JVD. No bruits. LUNG S: Clear to auscultation bilaterally. CARDIOVASCULAR: Regular rate and rhythm; S1, S2. No murmur s, rubs, or gallops auscultated. ABDOMEN: Soft, nontender. Normoactive bowel sounds. No hepatosp lenomegaly appreciated. Aorta could not be palpated. SKIN: No evidence of rashes. EXTREMITIES: No edema. NEURO: Patient is awake, alert, and oriented x3. LABORATORY: White blood cell count is 8.67, hemoglobin is 10.8, hematocrit is 33.5, platelet count is 253. Sodium 138, potassium 3.7, chloride 102, CO2 27, BUN 17, creatinine 0.9, troponin 0.359, 0 .852, 0.352. EKG demonstrates sinus rhythm. Normal axis, Normal intervals. Left atrial enlargement. No signifi cant ST or T-wave changes. Echocardiogram performed in setting of chest discomfort demonstrates normal left ventricular size an d systolic function. The patient has a small to moderate pericardial effusion with echogenicity wit hin. ASSESSMENT AND PLAN: Mrs. Cervantes is a 76-year-old female with: Myopericarditis. Patient presents with a several day history of chest pain following a viral gastro intestinal illness. The chest pain is described as an ache in her chest extending up into her neck. It is worse if she takes a deep breath or lies back. Her EKG demonstrates no acute ST or T-wave c hanges and is not necessarily suggestive of pericarditis. Her troponin is mildly but flatly elevate d. Her echocardiogram, however, is notable for a small to moderate pericardial effusion with echoge nicity within. The patient was started on nonsteroidal anti-inflammatories with a significant impro vement in her symptoms. I think the patient's constellation of symptoms and findings are most sugge stive of a myopericarditis. We will plan on continuing treatment with nonsteroidal anti-inflammator ies for the next 10 days. The patient will have a repeat echocardiogram performed at [facility] in approximately 1 weeks' period of time and follow up with her primary patient support specialist, Dr. Alejandra. /[id number]/MODL
== END 2017-01-18 13:45 | disposition home or self-care (01) | DRG 316 ==
LOC: CED 12:51 → CEDHOLD 14:15 → INTOOBSV 14:15 → F2W 16:16 → OBSVTOIN 01-17 15:07
PROVIDERS: ADMIT Internal Medicine; ATTEND Internal Medicine
DX: I31.9 Disease of pericardium, unspecified (principal); R91.8 Other nonspecific abnormal finding of lung field; I10 Essential (primary) hypertension; G89.29 Other chronic pain; E03.9 Hypothyroidism, unspecified; E21.3 Hyperparathyroidism, unspecified; E78.5 Hyperlipidemia, unspecified
CPT/HCPCS: 71010-PO; 71275-PO; 80048-PO; 82550-PO; 82553-PO; 83880-PO; 84484-PO; 85025-PO; 85378-PO; 85610-PO; 85730-PO; 96374; G0378; J1650; J2405; Q9967

== ENCOUNTER 2017-01-27 10:06 | Inpatient (IN) | payer OTHER ==
[2017-01-27] MEDS ORDERED: NS 1,000 ML IV ONE ×2 (10:23→13:06)
--- NOTE | 2017-01-27 10:23 | EDPHY ---
H & P Stated Complaint: 2 wks prob with heart/?pericarditis/feeling erratic hr/?fever HPI/ROS: HPI CHIEF COMPLAINT: Chest pain, shortness of breath, fever, nausea HISTORY OF PRESENT ILLNESS: This patient very pleasant 76-year-old female with recent hospitalization I did review her previous medical records and discharge summary she was recently hospitalized beginning of this month for myopericarditis, she presents emergency room with shortness of breath, chest pain, fever T-max at home 99.9. She thinks she may have recurrence for myopericarditis again. She states she has chest discomfort across her precordium that radiates up her neck into her jaw. Bilaterally. Denies vomiting with does endorse nausea. She called Dr. Laurence domingo cardiology on- call was recommended come to the emergency room. Past Medical History: Recent hospitalization January 16 through January 18 for mi pericarditis with pericardial effusion comma chest pain additional history hypertension, SVT, right upper lobe mass, chronic back pain nerve sheath tumor Past Surgical History: No recent surgery Social History: Denies daily use of drugs alcohol tobacco products Family History: Noncontributory ROS REVIEW OF SYSTEMS: A comprehensive 10 point review of systems is otherwise negative aside from elements mentioned in the history of present illness. Exam Constitutional appears well nontoxic, afebrile, vital signs reviewed, triage nursing summary reviewed, vital signs reviewed, awake/alert. Eyes normal conjunctivae and sclera, EOMI, PERRLA. HENT normal inspection, atraumatic, moist mucus membranes, no epistaxis, neck supple/ no meningismus, no raccoon eyes. Respiratory clear to auscultation bilaterally, normal breath sounds, no respiratory distress, no wheezing. Cardiovascular I do not appreciate a rub, rate normal, regular rhythm, no murmur, no edema, distal pulses normal. Gastrointestinal soft, non-tender, no rebound, no guarding, normal bowel sounds, no distension, no pulsatile mass. Genitourinary no CVA tenderness. Musculoskeletal no midline vertebral tenderness, full range of motion, no calf swelling, no tenderness of extremities, no meningismus, good pulses, neurovascularly intact. Skin pink, warm, & dry, no rash, skin atraumatic. Neurologic awake, alert and oriented x 3, AAOx3, moves all 4 extremities equally, motor intact, sensory intact, CN II-XII intact, normal cerebellar, normal vision, normal speech. Psychiatric normal mood/affect. Heme/Lymph/Immune no lymphadenopathy. Differential diagnosis includes but is not limited to: Myopericarditis, bacteremia, pneumonia, ACS, atypical chest pain, pneumothorax, pneumonia, pulmonary embolism, aortic dissection, congestive heart failure, tumor, musculoskeletal pain, esophageal pain, GERD, peptic ulcer disease, pancreatitis Medical Decision Making: Plan for this patient IV establishment, full quality assurance monitor final, EKG, troponin, chest x-ray, echocardiogram. Re-evaluation: EKG interpretation by me on record in [employer] system. Impression time of EKG 10:26 a.m. sinus rhythm rate of 93, T-wave abnormalities noted through V3 V4 V5 V6. T-wave inversions to 3 AVF. I do not appreciate AR depression. No ST elevation. There does appear to be slight electrical alternans. ED x-ray chest two view: Cardiomegaly present. Unchanged from previous chest x -ray. Image interpreted myself. 2352: I spoke with Dr. Davis with Cardiology her review the echocardiogram. There is a trace pericardial effusion. There is starting of the pericardium which is concerning for malignancy. He recommends admission to the hospital service for further evaluation of this. I will consult the hospitalist service. Reason for consultation chest pain, fever, possible malignant pericardial effusion. Source: Patient - Personal History Current Tetanus/Diphtheria Vaccine: Yes Tetanus Vaccine Date: within ten years - Medical/Surgical History Hx Asthma: Yes Hx Chronic Respiratory Disease: No Hx Diabetes: No Hx Cardiac Disease: Yes Hx Renal Disease: No Hx Cirrhosis: No Hx Alcoholism: No Hx HIV/AIDS: No Hx Splenectomy or Spleen Trauma: No Other PMH: HTN, SVT, left knee replacement, hysterectomy, left carpal tunnel repair, heart ablation for SVT, meniscus repairs bilateral knees, 02 at night, cataract surgery, chronic lower back pain, hypothyroidism, hyperparathyroidism, compression fx . - Social History Smoking Status: Never smoked Constitutional: Initial Vital Signs Temperature (C) 36.8 C 01/27/17 10:11 Heart Rate 92 01/27/17 10:11 Respiratory Rate 20 01/27/17 10:11 Blood Pressure 148/84 H 01/27/17 10:11 O2 Sat (%) 93 01/27/17 10:11 O2 Delivery Mode Room Air Allergies/Adverse Reactions: omeprazole Allergy (Intermediate, Verified 01/27/17 13:21) Other-Enter Comments Antihistamines - Piperazine Allergy (Verified 01/27/17 10:10) dicyclomine HCl [From Bentyl] Allergy (Verified 01/27/17 10:10) Sulfa (Sulfonamide Antibiotics) Allergy (Verified 01/27/17 10:10) ANTIBIOTICS Allergy (Uncoded 11/04/16 12:57) narcotics Allergy (Uncoded 11/04/16 12:57) Home Medications: Medication Instructions Recorded Amitriptyline HCl [Elavil 50 mg 50 mg PO HS 04/03/10 (*)] Diazepam [Valium 5 MG (*)] 2.5 mg PO DAILY PRN 04/03/10 Levothyroxine [Synthroid 100 mcg 100 mcg PO DAILY06 04/03/10 (*)] Propranolol HCl [Inderal 20mg (*)] 10 - 20 mg PO DAILY 04/03/10 Dorzolamide 2% [Trusopt 2% (*)] 1 drops LEFTEYE BID 01/16/17 Herbals/Supplements -Info Only 1 ea PO DAILY 01/16/17 Latanoprost 0.005% [Xalatan 0.005% 1 drops EACHEYE HS 01/16/17 (*)] Multivitamins [Multivitamin (*)] 1 each PO DAILY 01/16/17 Metoprolol Tartrate [Lopressor 25 12.5 mg PO BID #60 tab 01/18/17 mg (*)] Ibuprofen [Motrin (*)] 200 mg PO Q6H PRN 01/27/17 Methocarbamol [Robaxin 750 mg (*)] 750 mg PO QID PRN 01/27/17 Medical Decision Making - Data Points Laboratory Results: Laboratory Results 01/27/17 10:45 01/27/17 10:45 Medications Given: Amitriptyline HCl (Elavil) 50 mg PO HS KEENAN Stop: 07/26/17 20:59 Last Admin: 02/01/17 20:35 Dose: 50 mg Amlodipine Besylate (Norvasc) 2.5 mg PO DAILY KEENAN Stop: 07/31/17 11:29 Last Admin: 02/01/17 11:54 Dose: 2.5 mg Apixaban (Eliquis) 5 mg PO BID KEENAN Stop: 07/31/17 20:59 Last Admin: 02/01/17 20:27 Dose: 5 mg Azithromycin (Zithromax) 500 mg PO DAILY KEENAN PRN Reason: Protocol Stop: 03/03/17 15:44 Last Admin: 02/01/17 16:03 Dose: 500 mg Bisacodyl (Dulcolax Rectal) 10 mg AR DAILY PRN PRN Reason: CONSTIPATION Stop: 07/28/17 11:08 Last Admin: 02/01/17 10:27 Dose: 10 mg Cefdinir (Omnicef) 300 mg PO BID KEENAN PRN Reason: Protocol Stop: 03/03/17 20:59 Last Admin: 02/01/17 20:35 Dose: 300 mg Colchicine (Colchicine) 0.6 mg PO DAILY KEENAN Stop: 07/27/17 10:29 Last Admin: 02/01/17 07:51 Dose: 0.6 mg Diazepam (Valium) 2.5 mg PO DAILY PRN PRN Reason: Anxiety Stop: 07/26/17 13:07 Last Admin: 01/30/17 23:00 Dose: 2.5 mg Dorzolamide HCl (Trusopt 2%) 1 drops LEFTEYE BID [facility] Stop: 07/26/17 20:59 Last Admin: 02/01/17 18:59 Dose: 1 drop Guaifenesin (Mucinex) 600 mg PO BID [facility] Stop: 07/30/17 10:44 Last Admin: 02/01/17 20:39 Dose: Not Given Ibuprofen (Motrin) 600 mg PO TID KEENAN Stop: 07/27/17 15:59 Last Admin: 02/01/17 16:04 Dose: 600 mg Latanoprost (Xalatan 0.005%) 1 drops EACHEYE HS [facility] Stop: 07/26/17 20:59 Last Admin: 02/01/17 18:59 Dose: 1 drop Levothyroxine Sodium (Synthroid) 100 mcg PO DAILY06 [facility] Stop: 07/27/17 05:59 Last Admin: 02/01/17 07:19 Dose: 100 mcg Metoprolol Tartrate (Lopressor) 25 mg PO BID [facility] Stop: 07/30/17 20:59 Last Admin: 02/01/17 20:25 Dose: 25 mg Multivitamins (Tab-A-Kylah) 1 each PO DAILY KEENAN Stop: 07/27/17 08:59 Last Admin: 02/01/17 07:53 Dose: 1 each Ondansetron HCl (Zofran) 4 mg IVP Q4HRS PRN PRN Reason: Nausea/Vomiting, Can't Take PO Stop: 07/26/17 13:05 Last Admin: 01/28/17 03:39 Dose: 4 mg Ondansetron HCl (Zofran Odt) 4 mg PO Q4HRS PRN PRN Reason: Nausea/Vomiting, Use 1st Stop: 07/26/17 13:05 Last Admin: 01/30/17 03:37 Dose: 4 mg Discontinued Medications Albuterol (Proventil Neb) 3 ml IH ONCE ONE Stop: 01/29/17 21:01 Last Admin: 01/29/17 19:59 Dose: 3 ml Bupivacaine HCl/Epinephrine Bitart (Bupivacaine/Epi) Confirm Administered Dose 30 ml .ROUTE .STK-MED ONE Stop: 01/29/17 15:08 Last Admin: 01/29/17 18:45 Dose: 12 ml Enoxaparin Sodium (Lovenox) 40 mg SC DAILY [facility] Stop: 07/27/17 08:59 Last Admin: 01/31/17 09:04 Dose: 40 mg Enoxaparin Sodium (Lovenox) 80 mg SC BID [facility] Stop: 07/30/17 20:59 Last Admin: 02/01/17 07:49 Dose: 80 mg Famotidine (Pepcid) 20 mg PO DAILY [facility] Stop: 07/27/17 10:59 Last Admin: 01/28/17 14:01 Dose: Not Given Fentanyl (Sublimaze) 25 - 50 mcg IVP Q5M PRN PRN Reason: PACU, Immediate Moderate Pain Stop: 01/29/17 18:26 Last Admin: 01/29/17 19:14 Dose: 50 mcg Hydromorphone HCl (Dilaudid) 0.1 - 0.2 mg IVP Q10M PRN PRN Reason: PACU, Moderate Pain Stop: 01/29/17 18:26 Last Admin: 01/29/17 19:14 Dose: 0.2 mg Sodium Chloride (Ns) 1,000 mls @ 0 mls/hr IV EDNOW ONE; Wide Open PRN Reason: Protocol Stop: 01/27/17 10:24 Last Admin: 01/27/17 11:05 Dose: 1,000 mls Sodium Chloride (Ns) 1,000 mls @ 3,000 mls/hr IV ONCE ONE Stop: 01/27/17 13:25 Last Admin: 01/27/17 13:37 Dose: 1,000 mls Cefazolin Sodium/Dextrose (Ancef 2 Gm (Premix)) 100 mls @ 200 mls/hr IV ONCALL ONE Stop: 01/29/17 15:29 Last Admin: 01/29/17 18:10 Dose: 100 mls Lactated Ringer's (Lr) 1,000 mls @ 0 mls/hr IV ONCE ONE PRN Reason: Per Protocol Stop: 01/29/17 16:10 Last Admin: 01/29/17 22:04 Dose: Not Given Cefazolin Sodium/Dextrose (Ancef 2 Gm (Premix)) 100 mls @ 200 mls/hr IV Q8HRS KEENAN PRN Reason: Protocol Stop: 01/30/17 06:29 Last Admin: 01/30/17 02:11 Dose: 100 mls Cefazolin Sodium/Dextrose (Ancef 2 Gm (Premix)) 100 mls @ 200 mls/hr IV ONCE@ 1000 ONE PRN Reason: Protocol Stop: 01/30/17 10:29 Last Admin: 01/30/17 10:20 Dose: 100 mls Cefepime HCl 1 gm/ Dextrose 50 mls @ 100 mls/hr IV Q8HRS KEENAN PRN Reason: Protocol Stop: 03/01/17 17:05 Last Admin: 01/30/17 17:56 Dose: 50 mls Meropenem 1 gm/ Sodium (Chloride) 120 mls @ 120 mls/hr IV Q8HRS KEENAN PRN Reason: Protocol Stop: 03/02/17 02:59 Last Admin: 01/31/17 03:20 Dose: 120 mls Meropenem 1 gm/ Sodium (Chloride) 120 mls @ 120 mls/hr IV Q8H KEENAN PRN Reason: Protocol Stop: 03/02/17 09:59 Last Admin: 02/01/17 11:07 Dose: 120 mls Ibuprofen (Motrin) 600 mg PO Q6HRS PRN PRN Reason: Pain, Inflammatory Stop: 07/26/17 14:19 Last Admin: 01/27/17 14:45 Dose: 600 mg Ketorolac Tromethamine (Toradol) 15 mg IVP Q6HRS PRN PRN Reason: Pain, Inflammatory Stop: 01/30/17 12:01 Last Admin: 01/30/17 08:56 Dose: 15 mg Labetalol HCl (Labetalol Hcl) 5 - 10 mg IVP Q10M PRN PRN Reason: PACU, Hypertension Stop: 01/29/17 19:57 Last Admin: 01/29/17 19:10 Dose: 10 mg Metoprolol Tartrate (Lopressor) 12.5 mg PO BID [facility] Stop: 07/26/17 20:59 Last Admin: 01/31/17 09:03 Dose: 12.5 mg Metoprolol Tartrate (Lopressor) 12.5 mg PO ONCE ONE Stop: 01/31/17 11:01 Last Admin: 01/31/17 12:37 Dose: 12.5 mg Midazolam HCl (Versed) 1 mg IVP ONCALL ONE Stop: 01/29/17 17:12 Last Admin: 01/29/17 18:04 Dose: 1 mg Pantoprazole Sodium (Protonix) 40 mg PO DAILY@1800 [facility] Stop: 07/29/17 17:59 Last Admin: 01/30/17 18:03 Dose: 40 mg Propranolol HCl (Inderal) 10 mg PO DAILY [facility] Stop: 07/27/17 08:59 Last Admin: 01/28/17 08:31 Dose: 10 mg Departure - Departure Disposition: [facility] Acute Clinical Impression: Chest pain Qualifiers: Chest pain type: unspecified Qualified Code(s): R07.9 - Chest pain, unspecified Condition: Fair
--- NOTE | 2017-01-27 10:28 | CPEKG ---
Heart Rate: 93 RR Interval: 645 P-R Interval: 152 QRSD Interval: 80 QT Interval: 344 QTC Interval: 428 P [place]: 59 QRS [place]: 18 T Wave [place]: -62 EKG Severity - ABNORMAL ECG - EKG Impression: SINUS RHYTHM EKG Impression: NONSPECIFIC T ABNORMALITIES, DIFFUSE LEADS Electronically Signed By: Jimmy Funez 27-Jan-2017 15:12:42
[2017-01-27 10:49] LABS: % IMMATURE GRANULYOCYTES 0.7 % (0.0-1.1); ABSOLUTE IMMATURE GRANULOCYTES 0.09 10^3/uL (0.00-0.10); ADD DIFF? NO; ADD MORPH? NO; ADD SCAN? NO; ATYPICAL LYMPHOCYTE FLAG 0 (0-99); FRAGMENT RBC FLAG 0 (0-99); HEMATOCRIT 36.6 % (38.0-47.0); HEMOGLOBIN 11.9 g/dL (12.6-16.3); LEFT SHIFT FLG 0 (0-99); LIPEMIA HEMOLYSIS FLAG 80 (0-99); MEAN CELL HEMOGLOBIN 27.1 pg (27.9-34.1); MEAN CELL HEMOGLOBIN CONCENTR. 32.5 g/dL (32.4-36.7); MEAN CELL VOLUME 83.4 fL (81.5-99.8); MEAN PLATELET VOLUME 9.7 fL (8.7-11.7); PLATELET CLUMPS FLAG 10 (0-99); PLATELET COUNT 382 10^3/uL (150-400); RED BLOOD CELL COUNT 4.39 10^6/uL (4.18-5.33); RED CELL DISTRIBUTION WIDTH 14.5 % (11.5-15.2)
[2017-01-27 11:01] LABS: ALANINE AMINOTRANSFERASE 38 IU/L (9-52); ALKALINE PHOSPHATASE 96 IU/L (38-126); ANION GAP 14 mEq/L (8-16); ASPARTATE AMINOTRANSFERASE 22 IU/L (14-46); BILIRUBIN,TOTAL 0.7 mg/dL (0.1-1.4); BILIRUBIN-CONJUGATED 0.3 mg/dL (0.0-0.5); BILIRUBIN-UNCONJUGATED 0.4 mg/dL (0.0-1.1); CALCIUM 8.9 mg/dL (8.5-10.4); CARBON DIOXIDE 23 mEq/l (22-31); CHLORIDE 102 mEq/L (97-110); CREATININE 0.7 mg/dL (0.6-1.0); GLOMERULAR FILTRATION RATE > 60; GLUCOSE 103 mg/dL (70-100); POTASSIUM 4.1 mEq/L (3.5-5.2); SODIUM 139 mEq/L (134-144); TOTAL PROTEIN 7.1 g/dL (6.3-8.2)
[2017-01-27 11:12] LABS: CREATINE KINASE-MB FRACTION 0.22 ng/mL (0-3.19); TROPONIN I < 0.012 ng/mL (0-0.034)
[2017-01-27 11:56] LABS: COLOR YELLOW; LEUKOCYTE ESTERASE,URINE 1+ (NEGATIVE); NITRITE,URINE NEGATIVE (NEGATIVE)
--- NOTE | 2017-01-27 13:01 | ECHO ---
[id number] + + [id number] : [facility] [address] : : [phone] + + Adult Echocardiographic Report + ---+ :Name: MURARY MUNIZ SStudy Date: 01/27/2017 10:59 AM : : Hospital Admission Number: [id number] Location: ER: :: 1940 Gender: Female Height: 68 in : :Age: 76 yrs Race: WH Weight: 185 lb : :Reason For Study: limited echo to reasssess effusion : : BSA: 2.0 meters2 : :History: myopericarditis : + ---+ Doppler Measurements \T\ Calculations TR max jannet: 278.0 cm/sec TR max P.9 mmHg RAP systole: 5.0 mmHg RVSP(TR): 35.9 mmHg Left Ventricle The left ventricle is normal in size and function. Ejection Fraction = 65- 70%. Right Ventricle There is a large echogenicity noted in the pericardial space, it appears to be attached to the RV free wall. It extends from the RV apex to the tricuspid valve annulus. Atria The atrial septum is aneurysmal. Mitral Valve The mitral valve is normal in structure and function. Tricuspid Valve The tricuspid valve is normal in structure and function. There is mild tricuspid regurgitation. Right ventricular systolic pressure is 36mmHg. Aortic Valve The aortic valve is not well visualized. Pulmonic Valve The pulmonic valve is not well visualized. Pericardium/Pleural Small pericardial effusion. Multi echodensiites within the pericardial space consistent wtih tumor studding of pericardium. Pericadium also appears thickened. No tamponade. There is a moderate pleural effusion. Conclusion Limited echocardiogram in patient with reoccuring fever, cough, and chest pain. The left ventricle is normal in size and function. There is a large echogenicity noted in the pericardial space, it appears to be attached to the RV free wall. It extends from the RV apex to the tricuspid valve annulus. There is mild tricuspid regurgitation. Right ventricular systolic pressure is 36mmHg. Small pericardial effusion. There is a moderate pleural effusion. The atrial septum is aneurysmal. The aortic valve is not well visualized. Ejection Fraction = 65-70%. Final Reading Physician: Rock Davis electronically signed on 01/27/2017 01:00 PM Ordering Physician: Jimmy Funez Performed By: Lorin Martinez
[2017-01-27] MEDS ORDERED: ONDANSETRON DISINTEGRATING 4 MG TAB PO PRN (13:06)
[2017-01-27] MEDS ORDERED: IBUPROFEN 200 MG TAB PO PRN (13:06)
[2017-01-27] MEDS ORDERED: ACETAMINOPHEN 325 MG TAB PO PRN (13:06)
[2017-01-27] MEDS ORDERED: ONDANSETRON 4 MG/2 ML VIAL IVP PRN (13:06)
[2017-01-27] MEDS ORDERED: DIAZEPAM 5 MG TAB PO PRN (13:08)
[2017-01-27] MEDS ORDERED: METHOCARBAMOL 750 MG TAB PO PRN (13:08)
--- NOTE | 2017-01-27 13:52 | GHP ---
[f rep st] HISTORY AND PHYSICAL DATE OF ADMISSION: 01/27/2017 CHIEF COMPLAINT: Chest pain and fever. HISTORY OF PRESENT ILLNESS: A 76-year-old female with a recent hospitalization on 01/16/2017 with c omplaints of chest pain, found to have findings consistent with myopericarditis. The patient was di scharged on 01/18/2017 with treatment for myopericarditis. Patient reports feeling well after retur renetta home while on scheduled Motrin dosing then after completion of that, recurrence of intermittent fevers that began to rise as high as 99.9 the night before presentation, additionally with continue d occasional restrictive sensation in her chest with shortness of breath as well as chest pain in th e center of her chest radiating to her bilateral shoulders in at times her jaw. The patient describ es feeling overall not well, not her normal self. She has poor appetite, poor energy, has not been sleeping well. Denies any changes in her bowel habits, besides more regular normal stooling. No bl ood in her stools. No black stools. Denies dysuria, hematuria. Denies rashes or skin changes. Burroughs s had intermittent lower extremity edema particularly at the end of the day. PAST MEDICAL HISTORY: For this patient; 1. Recent myopericarditis. 2. Glaucoma. 3. Hypertension. 4. Hyperlipidemia. 5. History of SVT status post ablation. 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 SOCIAL HISTORY: Negative for tobacco, alcohol or illicit drug use. She lives with her son who had a recent stroke. 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 FAMILY HISTORY: Positive for heart disease in the female relatives in her family, including angina in her mother and a congenital heart abnormality. ADVANCED DIRECTIVES: The patient wishes to be full cor, full tube. Her sister and brother would be her medical decision makers. REVIEW OF SYSTEMS: A 10-point review of systems is negative with the exception of that reported in the HPI. PHYSICAL EXAMINATION: VITAL SIGNS: Blood pressure 150/95, heart rate 98, respiratory rate 18, 99% on room air, temperature 37.2. GENERAL: This is a healthy appearing, fatigued middle-aged female i n no acute distress. HEENT: Notable for dry mucous membranes. Eye exam is negative for any icteru s. CARDIAC: Patient is regular rate and rhythm. Systolic murmur is heard best at the right upper sternal border. No friction rub is appreciated. PULMONARY: Good respiratory effort. Clear to aus cultation bilaterally. GASTROINTESTINAL: Positive bowel sounds. Abdomen is soft and nontender in all 4 quadrants. MUSCULOSKELETAL: Shows bilateral trace lower extremity edema. SKIN: Negative fo r any rashes. NEUROLOGIC: Patient is alert and oriented x3. 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 DATA: White count 13.4, hematocrit 36.6, platelet count of 382. Sodium 139. Troponin less than 0. 012. Liver function tests are normal. Urinalysis is normal. Chest x-ray, which I personally revie wed and interpreted, shows mild cardiomegaly with small pleural effusions. ASSESSMENT AND PLAN: This is a 76-year-old female, presenting with chest pain and abnormal pericard ial pathology. 1. Progressive pericardial thickening/studding. Imaging in the emergency department by gary jackson for possible pericardial tumor studding. The patient will be admitted for additional diagnosti cs. After discussion with Radiology on the previous hospitalization CT scan, we will reorder a non contrasted CT to better visualize progression of pericardial pathology as well as the presence of ef fusion or other source of primary malignancy. We will continue p.r.n. anti-inflammatories. Dr. Linh story from Cardiology will review the case with Dr. Orellana from cardiovascular surgery for possible peric ardial window. 2. Chest pain. Suspect related to the inflammatory changes that were seen on the patient's imaging . Again will use anti-inflammatories. 3. Hypertension. We will continue patient's home medications and monitor accordingly. 4. Glaucoma. We will continue home medications without change. 5. Leukocytosis. Lower suspicion for acute occult infection. Suspect likely related to the underl carl process we are seeing in the pericardium. We will continue monitoring. Blood cultures have be en drawn from the emergency department and are pending. No empiric antibiotics at this time. PROPHYLAXIS: With Lovenox. DIET: Cardiac until a clear diagnostic plan is made. DISPOSITION: I expect greater than 2 midnights as the patient is presenting with concerning pericar dial findings for possible underlying malignancy requiring consultation with multiple subspecialists . I have discussed the case with the emergency room physician and Dr. Davis. Patient will be triage d to the PCU for care. /[id number]/MODL
[2017-01-27] MEDS ORDERED: IBUPROFEN 600 MG TAB PO PRN (14:20)
[2017-01-27] MEDS ORDERED: IBUPROFEN 200 MG TAB PO ONE (14:39)
--- NOTE | 2017-01-27 14:57 | GCON ---
[f rep st] CONSULTATION CARDIOLOGY CONSULTATION DATE OF CONSULTATION: 01/27/2017 REASON FOR CONSULTATION: Chest pain. HISTORY OF PRESENT ILLNESS: The patient is a pleasant 76-year-old female, who was hospitalized in early January 2017 with complaints of chest pain and was found to have findings consistent with a myopericarditis with mild troponin elevation and evidence of pericardial effusion coupled with pericardial thickening. She was discharged home on January 18, 2017, with 600 mg of ibuprofen p.o. t.i.d. times an additional 4 days. She completed her ibuprofen course on last Saturday. She states that over the last 24-48 hours she began developing substernal chest discomfort with radiation to bilateral shoulders as well as radiating around her left flank toward her back. She states that last night she woke up feeling short of breath. This morning, she had contacted the on-call service. I spoke with her and, given her recent history, recommended she present to [facility] for further evaluation. The patient states that, over the last several weeks, she has developed night sweats and intermittent fevers. She denies losing weight and notes increased abdominal girth. She reports soaking sweats as recently as last night. In reviewing her echocardiogram from January 17, 2017, as well as her echocardiogram from today, there is evidence of multiple echo densities within the pericardium that, in my opinion, are concerning for possible tumor studding of the pericardium. This may also represent possible organization of a pericardial fluid or fibrinous stranding; however, the findings of the pericardium are more echodense and more concerning given their size and character for tumor studding. In the setting of ongoing night sweats of unclear etiology, concern for possible underlying malignancy. I do note she did undergo a CAT scan of her chest earlier this month demonstrating a benign-appearing right upper lobe nodule and a left upper lobe nodule that was consistent with ANGELIQUE infiltrate. Currently, at the time of my exam, she is resting comfortably without complaint. She denies any new onset of lower extremity edema. She denies weight loss. She does complain of chest discomfort, shortness of breath, paroxysmal nocturnal dyspnea, night sweats, and weight gain. REVIEW OF SYSTEMS: Remainder of review of systems is negative. PAST MEDICAL HISTORY: 1. Recent episode of myopericarditis. 2. Glaucoma. 3. Hypertension. 4. Hyperlipidemia. 5. History of SVT, status post ablation down in [place]. 6. History of nerve sheath tumor L1-L2, thought to be benign. MEDICATIONS ON ADMISSION: 1. Propranolol 20 mg p.o. daily. 2. Multivitamin. 3. Metoprolol tartrate 25 mg p.o. b.i.d. 4. Robaxin 750 mg q.i.d. p.r.n. 5. Synthroid 100 mcg daily. 6. Xalatan eyedrops 1 drop in each eye h.s. 7. Trusopt 2% one drop, left eye b.i.d. 8. Valium 5 mg tablets 2.5 mg p.o. daily p.r.n. 9. Elavil 50 mg p.o. h.s. ALLERGIES: Include antihistamines, dicyclomine, sulfa, omeprazole, narcotics, and antibiotics. 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 She does not drink alcohol. She is a nonsmoker. FAMILY HISTORY: No family history of premature coronary artery disease. PHYSICAL EXAMINATION: VITAL SIGNS: Blood pressure 158/95, heart rate 98, in sinus rhythm, oxygen saturation 99% on room air, temperature 37.2. GENERAL: She is awake, alert, oriented, appropriate, in no apparent distress. NECK: There is no evidence of JVP or carotid bruits. LUNGS: Clear to auscultation bilaterally. CARDIAC: S1, S2. Regular rate and rhythm. No murmurs, rubs, or gallops. ABDOMEN: Soft, nontender, nondistended. EXTREMITIES: There is no evidence of cyanosis, clubbing, or edema. DATA: White blood cell count of 13.9, hemoglobin of 11.9, hematocrit 36.6, platelets of 382, MCV 83.4. Sodium 139, potassium 4.1, chloride 102, bicarb 23 , BUN 10, creatinine 0.7, glucose 103. Hepatic function normal. Troponin less than 0.012. [id number] 739, which is down from 937 on January 16. Chest x-ray done today demonstrates mild interstitial prominence in both lower lobes which may represent early pulmonary edema versus bronchitis. Small bilateral pleural effusions. Echocardiogram demonstrates preserved left ventricular function. There is a mild pericardial effusion with echo densities suggestive of tumor studding of the pericardium. CT of the chest results pending. IMPRESSION: 1. Chest pain. 2. Pericardial effusion with echo densities within the pericardium suggestive of tumor studding. PLAN: 1. Recommend return to ibuprofen [address]o. t.i.d. 2. CT of the chest to be done later today. 3. CT Surgery consult for pericardial window and biopsy. 4. We will continue to follow along with her care. 45 minutes spent coordinating care. /[id number]/MODL MTDD
[2017-01-27] MEDS: METOPROLOL TARTRATE 25 MG TAB PO SCH (21:00)
[2017-01-27] MEDS ORDERED: LATANOPROST 0.005% 2.5 ML OPHT DROPS EACHEYE SCH (21:00)
[2017-01-27] MEDS ORDERED: DORZOLAMIDE 2% OPTH DROPS LEFTEYE SCH (21:00)
[2017-01-27] MEDS: AMITRIPTYLINE HCL 50 MG TAB PO SCH (21:01)
[2017-01-27] MEDS: LATANOPROST 0.005% 2.5 ML OPHT DROPS EACHEYE SCH (21:01)
[2017-01-27] MEDS: DORZOLAMIDE 2% OPTH DROPS LEFTEYE SCH (21:02)
[2017-01-28 04:25] LABS: ANION GAP 8 mEq/L (8-16); CALCIUM 8.4 mg/dL (8.5-10.4); CARBON DIOXIDE 25 mEq/l (22-31); CHLORIDE 102 mEq/L (97-110); CREATININE 0.7 mg/dL (0.6-1.0); GLOMERULAR FILTRATION RATE > 60; GLUCOSE 129 mg/dL (70-100); POTASSIUM 4.1 mEq/L (3.5-5.2); SODIUM 135 mEq/L (134-144)
[2017-01-28 04:28] LABS: % IMMATURE GRANULYOCYTES 0.6 % (0.0-1.1); ABSOLUTE IMMATURE GRANULOCYTES 0.09 10^3/uL (0.00-0.10); ADD DIFF? NO; ADD MORPH? NO; ADD SCAN? NO; ATYPICAL LYMPHOCYTE FLAG 0 (0-99); FRAGMENT RBC FLAG 0 (0-99); HEMOGLOBIN 10.6 g/dL (12.6-16.3); LEFT SHIFT FLG 10 (0-99); LIPEMIA HEMOLYSIS FLAG 80 (0-99); MEAN CELL HEMOGLOBIN CONCENTR. 32.1 g/dL (32.4-36.7); MEAN PLATELET VOLUME 9.9 fL (8.7-11.7); PLATELET CLUMPS FLAG 0 (0-99); PLATELET COUNT 319 10^3/uL (150-400); RED BLOOD CELL COUNT 3.93 10^6/uL (4.18-5.33); RED CELL DISTRIBUTION WIDTH 14.6 % (11.5-15.2)
[2017-01-28] MEDS: LEVOTHYROXINE 100 MCG TAB PO SCH (05:59)
[2017-01-28] MEDS: MULTIVITAMINS 1 EACH TAB PO SCH (08:32)
[2017-01-28] MEDS: METOPROLOL TARTRATE 25 MG TAB PO SCH ×2 (08:33→20:05)
[2017-01-28] MEDS: ENOXAPARIN 40 MG/0.4 ML SYR SC SCH (08:34)
[2017-01-28] MEDS: DORZOLAMIDE 2% OPTH DROPS LEFTEYE SCH ×2 (08:34→20:04)
--- NOTE | 2017-01-28 08:59 | GCON ---
[f rep st] CONSULTATION DATE OF CONSULTATION: 01/28/2017 REFERRING PHYSICIAN: Patrick Barboza MD The patient is seen at the request of Dr. Barboza with the patient's permission. IMPRESSION: 1. Pericardial thickening with slight increase in effusion, concern for metastatic pericardial dise ase. 2. Glaucoma. 3. Hypertension. 4. Hyperlipidemia. 5. History of supraventricular tachycardia with ablation. RECOMMENDATIONS: This patient was offered a subxiphoid pericardial window for biopsy and drainage, and cytology to rule out malignancy versus infectious etiology. She appears agreeable. We will per form in the morning. Risks and complications were reviewed at length. HISTORY: This is a pleasant, 76-year-old female who was hospitalized in January with chest pain, was found to have myopericarditis with mild troponin elevation and pericardial effusion with thickening . She was discharged on the on nonsteroidals for pericarditis. She completed her ibuprofen on Saturday. She then began developing chest discomfort again with radiation to both shoulders. Repeat echo showed maybe slight increase in effusion, with multiple echo densities within the pericardium w hich was concerning for potential tumor. CAT scan demonstrated benign-appearing right upper lobe no dule and left upper lobe nodules, and some atelectasis in the right middle and right lower lobe. MEDICATIONS: Were reviewed. REVIEW OF SYSTEMS: Were reviewed. PHYSICAL EXAMINATION: GENERAL: Obese, elderly female, lying supine in bed, in no apparent distress . She is quite alert, oriented, well informed. VITAL SIGNS: 129/79, heart rate 98, respirations 20 , O2 saturation 94% on 2 L. HEENT: Normocephalic. TORITO. No significant hematocrit jugular venou s distention. HEART: Rate is regular with normal heart sounds. LUNGS: Clear. ABDOMEN: Slightly protuberant. Bowel sounds are active. RECTAL AND GENITAL: Deferred. NEUROLOGIC: Alert, oriente d x3. Mood and affect are appropriate. EXTREMITIES: There was a 1+ pretibial edema bilaterally. LABORATORY DATA: Reviewed. /[id number]/MODL
[2017-01-28] MEDS ORDERED: PROPRANOLOL HCL 20 MG TAB PO SCH (09:00)
[2017-01-28] MEDS ORDERED: Herbals/Supplements -Info Only PO SCH (09:00)
--- NOTE | 2017-01-28 10:35 | PDCARPN ---
Cardiology Progress Note Assessment/Plan: Assessment/plan: 76-year-old female with a recent admission for myopericarditis , treated with a short course of nonsteroidal anti-inflammatories. She is now readmitted with the same clinical picture, although this time her troponin is negative. Pericardium is thickened with significant fibrinous debris. These findings have progressed slightly compared with January 17. 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 She has been followed in the outpatient by Dr. Hendricks. 1. pericarditis: Will treat with scheduled ibuprofen, Pepcid for gastric protection, and add colchicine. Possible colchicine side effects were reviewed. Check ESR and CRP. Both of these were elevated during her last admission. Differential diagnosis includes incompletely treated viral pericarditis, autoimmune process, or malignancy. Will check LDH, RF, MAGDA. Dr. Mckay Orellana has seen the patient and plans for pericardial biopsy tomorrow. Clinically, she does not appear to have constrictive pericarditis. 2. abnormal chest CT: Followed by Dr. Hendricks. She has had a chronic cough. Pericardial biopsy tomorrow. Malignancy is still in the differential. May need inpatient Pulmonary consultation. 3. hypertension: She is on metoprolol as well as propanolol here. She states the metoprolol is a new medication as of last admission. Will DC propanolol for now. 4. history of SVT status post ablation. No arrhythmias here. She is on a beta- demond. 5. Coronary artery calcifications seen incidentally on chest CT: Previous minimally elevated troponin thought to be related to myopericarditis. Troponin negative this admission. EKG is changed since last admission. her chest pain is much more consistent with pericarditis and not acute coronary syndrome. Consider nuclear stress test as an outpatient. 6. Hypothyroidism: Check TSH. Last TSH was normal in 2014. 01/28/17 11:03 Subjective: Cindy feels slightly better compared with admission. She continues to have pleuritic chest discomfort, bilateral towards the shoulders, especially notable with inspiration. She short of breath. She has had a dry cough and intermittent fevers since October. Back in October she did have significant nasal and chest congestion as well. She has lost a few lb and does endorse anorexia. She has not had a rash. Over the past month she has had intermittent night sweats. Reviewed/Discussed With: other (Dr. Orellana) Time Spent With Patient: 20 minutes Objective: Vital Signs (8 Hrs) Temp Pulse Resp BP Pulse Ox 01/28/17 07:40 36.4 C 98 20 129/79 H 94 01/28/17 05:00 36.6 C 88 18 141/83 H 93 Intake/Output (24 Hrs) 01/27/17 01/28/17 01/29/17 05:59 05:59 05:59 Intake Total 550 Output Total 1600 Balance -1050 Intake: Oral (ml) 550 Output: Urine (ml) 1600 Toilet 1600 Other: Weight 84.3 kg Number of Voids Toilet 2 appears fatigued. Lying at 30 degrees in bed. JVP less than 10. Regular rate and rhythm with soft early systolic murmur at the left lower sternal border. No rub appreciated. No gallop. minimally decreased breath sounds at both bases. Dry cough. No wheezes or rhonchi. No rales. Abdomen soft nontender nondistended without bruits masses or hepatosplenomegaly Extremities and warm and well perfused without cyanosis clubbing or edema Neuro alert and oriented x3 without gross focal neurologic deficits. Appropriate mood and affect. Chest x-ray reviewed: Small bilateral pleural effusions Result Diagrams: 01/28/17 03:20 01/28/17 03:20 EKG: sinus rhythm with diffuse nonspecific ST T wave abnormalities, unchanged compared with previous admission Telemetry: Sinus rhythm Echocardiogram: dated January 17 and January 27 both reviewed: Normal LV size and systolic function. Mild tricuspid regurgitation. Thickened pericardium with small to moderate pericardial effusion mostly filled with fibrinous debris. Pleural effusion seen ICD10 Worksheet Patient Problems: Problems Problem Status Onset Chest pain Acute Dyspnea Acute Elevated troponin Acute
[2017-01-28] MEDS ORDERED: FAMOTIDINE 20 MG TAB PO SCH (11:00)
[2017-01-28] MEDS: COLCHICINE 0.6 MG CAP/TAB PO SCH (11:03)
[2017-01-28 11:26] LABS: HEMATOCRIT 33.1 % (38.0-47.0)
--- NOTE | 2017-01-28 11:26 | HOSPPROG ---
Hospitalist Progress Note Assessment/Plan: Pericarditis / chest pain - ?viral / infectious vs malignant vs autoimmune. CT imaging abnormal with increased pericardial thickness. No fevers here, but leukocytosis noted. CRP and ESR elevated. BCx's pending. Trop elevated but flat last admission, now normal. -Cardiology following, appreciate assistance -cont nsaids, colchicine, pt declines pepcid citing untoward side effects -LDH, RF, MAGDA pending -Follow BCx's -CV surgery consulted, discussed with Dr. Orellana. He will do pericardial window and biopsy in am, NPO after midnight, hold Lovenox -outpatient stress test Hypertension - adequate control -cont metoprolol SVT - s/p ablation, cont BB Glaucoma - cont outpt meds Nausea - improved with Zofran, cont supportive care Chronic hypoxemic respiratory failure - pt on 2 LPM O2 at night at baseline. B/ L pleural effusions noted. Pt followed by Dr. Hendricks, Pulm, for chronic cough. CT with reticular nodular opacities, ?ANGELIQUE. She is on 2 LPM here. -consider pulmonary consult DVT PPLX - Lovenox held for am procedure Full code Dispo - cont inpt Subjective: Pt feels better. Denies CP this am. Notes chronic cough. No fevers. Doesn't want to take Pepcid, gets side effects. Objective: Vital Signs Temp Pulse Resp BP Pulse Ox 36.4 C 98 20 129/79 H 94 01/28/17 07:40 01/28/17 07:40 01/28/17 07:40 01/28/17 07:40 01/28/17 07:40 Laboratory Results 01/28/17 03:20 01/28/17 03:20 01/27/17 01/28/17 01/29/17 05:59 05:59 05:59 Intake Total 550 Output Total 1600 Balance -1050 - Physical Exam Constitutional: no apparent distress Eyes: PERRL Ears, Nose, Mouth, Throat: moist mucous membranes Cardiovascular: regular rate and rhythym Respiratory: no respiratory distress, clear to auscultation Gastrointestinal: normoactive bowel sounds, soft, non-tender abdomen Skin: warm Musculoskeletal: full muscle strength Neurologic: AAOx3 Psychiatric: interacting appropriately ICD10 Worksheet Patient Problems: Problems Problem Status Onset Chest pain Acute Dyspnea Acute Elevated troponin Acute
[2017-01-28 11:58] LABS: LACTATE DEHYDROGENASE 564 IU/L (313-618)
[2017-01-28 12:11] LABS: C-REACTIVE PROTEIN 169.9 mg/L (<10.0)
[2017-01-28] MEDS: IBUPROFEN 600 MG TAB PO SCH ×2 (14:38→20:05)
[2017-01-28] MEDS: LATANOPROST 0.005% 2.5 ML OPHT DROPS EACHEYE SCH (20:04)
[2017-01-28] MEDS: AMITRIPTYLINE HCL 50 MG TAB PO SCH (20:05)
[2017-01-29 04:06] LABS: % IMMATURE GRANULYOCYTES 0.7 % (0.0-1.1); ABSOLUTE IMMATURE GRANULOCYTES 0.07 10^3/uL (0.00-0.10); ADD DIFF? NO; ADD MORPH? NO; ADD SCAN? NO; ATYPICAL LYMPHOCYTE FLAG 0 (0-99); FRAGMENT RBC FLAG 0 (0-99); HEMOGLOBIN 9.9 g/dL (12.6-16.3); LEFT SHIFT FLG 0 (0-99); LIPEMIA HEMOLYSIS FLAG 80 (0-99); MEAN CELL HEMOGLOBIN 26.8 pg (27.9-34.1); MEAN CELL HEMOGLOBIN CONCENTR. 30.9 g/dL (32.4-36.7); MEAN CELL VOLUME 86.5 fL (81.5-99.8); MEAN PLATELET VOLUME 10.1 fL (8.7-11.7); PLATELET CLUMPS FLAG 10 (0-99); PLATELET COUNT 317 10^3/uL (150-400); RED CELL DISTRIBUTION WIDTH 14.7 % (11.5-15.2)
[2017-01-29] MEDS: METOPROLOL TARTRATE 25 MG TAB PO SCH ×2 (06:39→22:01)
[2017-01-29] MEDS: IBUPROFEN 600 MG TAB PO SCH ×2 (06:39→22:04)
[2017-01-29] MEDS: LEVOTHYROXINE 100 MCG TAB PO SCH (06:44)
--- NOTE | 2017-01-29 09:24 | CPEKG ---
Heart Rate: 85 RR Interval: 706 P-R Interval: 168 QRSD Interval: 78 QT Interval: 388 QTC Interval: 462 P [place]: 66 QRS [place]: 24 T Wave [place]: -69 EKG Severity - ABNORMAL ECG - EKG Impression: SINUS RHYTHM EKG Impression: NONSPECIFIC T ABNORMALITIES, DIFFUSE LEADS EKG Impression: SIMILAR ECG FINDINGS NOTED ON PRIOR ECG Electronically Signed By: Patrick Joe 29-Jan-2017 13:16:33
[2017-01-29] MEDS: DORZOLAMIDE 2% OPTH DROPS LEFTEYE SCH ×2 (10:29→22:00)
[2017-01-29] MEDS: COLCHICINE 0.6 MG CAP/TAB PO SCH (10:29)
[2017-01-29] MEDS: MULTIVITAMINS 1 EACH TAB PO SCH (10:30)
[2017-01-29] MEDS: BISACODYL 10 MG SUPP PR PRN (11:56)
[2017-01-29] MEDS ORDERED: ceFAZolin 2 GM/DEXTROSE 100 ML IV ONE (15:00)
[2017-01-29] MEDS ORDERED: ceFAZolin 1 GM in NS 100 ML IV ONE (15:00)
[2017-01-29] MEDS ORDERED: BUPIVACAINE/EPI 0.25% 30 ML SDV ONE (15:07)
--- NOTE | 2017-01-29 15:10 | HOSPPROG ---
Hospitalist Progress Note Assessment/Plan: Pericarditis / chest pain - ?viral / infectious vs malignant vs autoimmune. CT imaging abnormal with increased pericardial thickness, ?chronic. No fevers here , wbc's 14 --> 10. CRP and ESR elevated. BCx's NGTD. Trop elevated but flat last admission, now normal. -CV surgery consulted, discussed with Dr. Orellana. He will do pericardial window and biopsy today. NPO, Lovenox held -Cardiology following, appreciate assistance -cont nsaids, colchicine, pt declines pepcid citing untoward side effects -LDH, RF, MAGDA neg -outpatient stress test Hypertension - adequate control -cont metoprolol SVT - s/p ablation, cont BB Glaucoma - cont outpt meds Nausea - improved with Zofran, cont supportive care Chronic hypoxemic respiratory failure - pt on 2 LPM O2 at night at baseline. B/ L pleural effusions noted. Pt followed by Dr. Hendricks, Pulm, for chronic cough. CT with reticular nodular opacities, ?ANGELIQUE. 98% on room air today. -consider pulmonary consult DVT PPLX - Lovenox held for procedure today. Resume 24 hrs post-procedure. Full code Dispo - cont inpt Subjective: Pt feels well. Denies CP or SOB. No fevers, but c/o sweats overnight. NPO today for pericardial window. Objective: Vital Signs Temp Pulse Resp BP Pulse Ox 37.2 C 87 18 131/63 H 93 01/29/17 13:02 01/29/17 13:02 01/29/17 13:02 01/29/17 13:02 01/29/17 13:02 Laboratory Results 01/29/17 03:20 01/28/17 03:20 01/28/17 01/29/17 01/30/17 05:59 05:59 05:59 Intake Total 550 1240 Output Total 1600 1200 650 Balance -1050 40 -650 - Physical Exam Constitutional: no apparent distress Eyes: PERRL Ears, Nose, Mouth, Throat: moist mucous membranes Cardiovascular: regular rate and rhythym Respiratory: no respiratory distress, clear to auscultation Gastrointestinal: normoactive bowel sounds, soft, non-tender abdomen Skin: warm Musculoskeletal: full muscle strength Neurologic: AAOx3 Psychiatric: interacting appropriately ICD10 Worksheet Patient Problems: Problems Problem Status Onset Chest pain Acute Dyspnea Acute Elevated troponin Acute
[2017-01-29] MEDS ORDERED: LR 1,000 ML IV ONE (16:09)
[2017-01-29] MEDS ORDERED: MIDAZOLAM 2 MG/2 ML VIAL IVP ONE (17:11)
[2017-01-29] MEDS ORDERED: fentaNYL 100 MCG/2 ML INJ ONE ×2 (17:19→19:13)
[2017-01-29] MEDS ORDERED: PROPOFOL 200 MG/20 ML VIAL ONE (17:19)
[2017-01-29] MEDS ORDERED: LIDOCAINE 2% 5 ML SDV ONE (17:21)
[2017-01-29] MEDS ORDERED: fentaNYL 100 MCG/2 ML INJ IVP PRN (17:26)
[2017-01-29] MEDS ORDERED: ONDANSETRON 4 MG/2 ML VIAL IVP PRN (17:26)
[2017-01-29] MEDS ORDERED: HYDROmorphONE/DILAUDID 1 MG/ML SYR IVP PRN ×2 (17:26→23:00)
[2017-01-29] MEDS ORDERED: NALOXONE HCL 0.4 MG/ML INJ IVP PRN ×2 (17:26)
--- NOTE | 2017-01-29 18:23 | PDANEPAE ---
ANE History of Present Illness Pericardial Window ANE Past Medical History - Pulmonary History Hx Oxygen in Use at Home: Yes O2 in Use at Home (L/minute): 2 Hx Sleep Apnea: Yes Sleep Apnea Screening Result - Last Documented: Positive - Endocrine History Hx Diabetes: No - Chronic Pain History Chronic Pain: Yes ANE Review of Systems - Exercise capacity METS (RN): 4 METS ANE Patient History - Allergies Allergies/Adverse Reactions: omeprazole Allergy (Intermediate, Verified 01/27/17 13:21) Other-Enter Comments Antihistamines - Piperazine Allergy (Verified 01/27/17 10:10) dicyclomine HCl [From Bentyl] Allergy (Verified 01/27/17 10:10) Sulfa (Sulfonamide Antibiotics) Allergy (Verified 01/27/17 10:10) ANTIBIOTICS Allergy (Uncoded 11/04/16 12:57) narcotics Allergy (Uncoded 11/04/16 12:57) - Home Medications Home Medications: Amitriptyline HCl [Elavil 50 mg (*)] 50 mg PO HS 04/03/10 [Last Taken 01/26/17] Diazepam [Valium 5 MG (*)] 2.5 mg PO DAILY PRN 04/03/10 [Last Taken 01/26/17] Levothyroxine [Synthroid 100 mcg (*)] 100 mcg PO DAILY06 04/03/10 [Last Taken ] Propranolol HCl [Inderal 20mg (*)] 10 - 20 mg PO DAILY 04/03/10 [Last Taken 06/02] Dorzolamide 2% [Trusopt 2% (*)] 1 drops LEFTEYE BID 01/16/17 [Last Taken ] Herbals/Supplements -Info Only 1 ea PO DAILY 01/16/17 [Last Taken 01/26/17] Latanoprost 0.005% [Xalatan 0.005% (*)] 1 drops EACHEYE HS 01/16/17 [Last Taken 01/26/17] Multivitamins [Multivitamin (*)] 1 each PO DAILY 01/16/17 [Last Taken 01/26/17] Ibuprofen [Motrin (*)] 200 mg PO Q6H PRN 01/27/17 [Last Taken 01/26/17] Methocarbamol [Robaxin 750 mg (*)] 750 mg PO QID PRN 01/27/17 [Last Taken 1 Week Ago] - NPO status NPO Since - Liquids (Date): 01/29/17 NPO Since - Liquids (Time): 07:30 NPO Since - Solids (Date): 01/29/17 NPO Since - Solids (Time): 07:30 - Smoking Hx Smoking Status: Never smoked ANE Labs/Vital Signs - Labs Result Diagrams: 01/29/17 03:20 01/28/17 03:20 - Vital Signs Blood Pressure: 160/88 Heart Rate: 92 Respiratory Rate: 18 O2 Sat (%): 97 Height: 172.72 cm Weight: 84.3 kg ANE Physical Exam - Airway Neck exam: FROM Mallampati Score: Class 2 Mouth exam: normal dental/mouth exam, small mouth opening - Pulmonary Pulmonary: clear to auscultation - Cardiovascular Cardiovascular: regular rate and rhythym - ASA Status ASA Status: II ANE Anesthesia Plan Anesthesia Plan: general endotracheal anesthesia
[2017-01-29] MEDS ORDERED: SUGAMMADEX SODIUM 200 MG/2 ML VIAL IVP ONE (18:31)
[2017-01-29] MEDS ORDERED: DEXAMETHASONE 4 MG/ML VIAL ONE (18:31)
[2017-01-29] MEDS ORDERED: ONDANSETRON 4 MG/2 ML VIAL ONE (18:31)
[2017-01-29] MEDS ORDERED: LABETALOL HCL 50 MG/10 ML SYR IVP PRN (18:57)
--- NOTE | 2017-01-29 18:57 | POSTANESTH ---
Post Anesthetic Evaluation Cardiovascular Status: Normal, Stable Respiratory Status: Normal, Stable Level of Consciousness/Mental Status: Can Participate in Eval, Mildly Sleepy, Arousable Pain Control: Adequate, Prn Tx Ordered Nausea/Vomiting Control: Adequate, Prn Tx Ordered Complications Possibly Related to Anesthesia: None Noted
[2017-01-29] MEDS ORDERED: LABETALOL HCL 5 MG/ML 20 ML MDV ONE (19:08)
[2017-01-29] MEDS ORDERED: HYDROmorphONE/DILAUDID 1 MG/ML SYR ONE (19:13)
[2017-01-29] MEDS ORDERED: ALBUTEROL 3 ML DEYVIAL ONE (19:56)
[2017-01-29] MEDS ORDERED: ALBUTEROL 3 ML DEYVIAL IH ONE (21:00)
--- NOTE | 2017-01-29 21:00 | POSTOPPROG ---
Post Op Note Date of Operation: 01/29/17 Surgeon: Mckay Orellana Anesthesiologist: Aixa Anesthesia: GET(General Endotracheal) Pre-op Diagnosis: pericardial mass Post-op Diagnosis: await path Procedure: subxyphoid window w bx Inf/Abcess present in the surg proc area at time of surgery?: No EBL: Minimal
[2017-01-29] MEDS ORDERED: KETOROLAC 30 MG/1 ML SDV IVP PRN (21:49)
[2017-01-29] MEDS: LATANOPROST 0.005% 2.5 ML OPHT DROPS EACHEYE SCH (22:01)
[2017-01-29] MEDS: AMITRIPTYLINE HCL 50 MG TAB PO SCH (22:02)
[2017-01-29] MEDS ORDERED: KETOROLAC 15 MG/1 ML SDV IVP PRN (22:04)
[2017-01-30] MEDS ORDERED: ceFAZolin 2 GM/DEXTROSE 100 ML IV SCH (02:00)
[2017-01-30 05:01] LABS: % IMMATURE GRANULYOCYTES 0.6 % (0.0-1.1); ABSOLUTE IMMATURE GRANULOCYTES 0.08 10^3/uL (0.00-0.10); ADD DIFF? NO; ADD MORPH? NO; ADD SCAN? NO; ATYPICAL LYMPHOCYTE FLAG 0 (0-99); FRAGMENT RBC FLAG 0 (0-99); HEMATOCRIT 31.5 % (38.0-47.0); HEMOGLOBIN 9.9 g/dL (12.6-16.3); LEFT SHIFT FLG 0 (0-99); LIPEMIA HEMOLYSIS FLAG 80 (0-99); MEAN CELL HEMOGLOBIN 26.9 pg (27.9-34.1); MEAN CELL HEMOGLOBIN CONCENTR. 31.4 g/dL (32.4-36.7); MEAN CELL VOLUME 85.6 fL (81.5-99.8); MEAN PLATELET VOLUME 10.4 fL (8.7-11.7); PLATELET CLUMPS FLAG 0 (0-99); PLATELET COUNT 368 10^3/uL (150-400); RED BLOOD CELL COUNT 3.68 10^6/uL (4.18-5.33); RED CELL DISTRIBUTION WIDTH 14.7 % (11.5-15.2)
[2017-01-30 05:25] LABS: ANION GAP 11 mEq/L (8-16); CALCIUM 8.6 mg/dL (8.5-10.4); CARBON DIOXIDE 27 mEq/l (22-31); CHLORIDE 100 mEq/L (97-110); CREATININE 0.7 mg/dL (0.6-1.0); GLOMERULAR FILTRATION RATE > 60; GLUCOSE 175 mg/dL (70-100); POTASSIUM 4.6 mEq/L (3.5-5.2); SODIUM 138 mEq/L (134-144)
[2017-01-30] MEDS: LEVOTHYROXINE 100 MCG TAB PO SCH (06:01)
--- NOTE | 2017-01-30 07:52 | SOAPPROG ---
SOAP Progress Note Assessment/Plan: Assessment: POD#1 Subxiphoid pericardial window with pericardial bx Pericarditis w effusion - Unclear etiology. Small effusion evacuated and pericardial biopsy taken. Minimal drainage overnight. Await cx and bx results. Anti-inflammatory therapy per primary team. Plan: Remove drain. Ok to resume VTE prophylaxis. CT surgery will sign off. Instructions re wound care provided. 01/30/17 07:50 Subjective: Doing ok. A little uncomfortable but nervous about taking "pain medication". Objective: Vital Signs Temp Pulse Resp BP Pulse Ox 36.6 C 81 21 H 156/86 H 92 01/30/17 07:23 01/30/17 07:23 01/30/17 07:23 01/30/17 07:23 01/30/17 07:23 Laboratory Results 01/30/17 03:26 01/30/17 03:26 01/29/17 01/30/17 01/31/17 05:59 05:59 05:59 Intake Total 1240 755 Output Total 1200 1315 Balance 40 -560 Afeb. VSS. H/H stable. Drain output 30cc. Physical Exam - Physical Exam General Appearance: alert, no apparent distress Respiratory: normal breath sounds (upper airways) Cardiac/Chest: regular rate, rhythm, other (Subxiphoid incision CDI, Drain intact, serosang drainage) Abdomen: soft Skin: warm/dry ICD10 Worksheet Patient Problems: Problems Problem Status Onset Chest pain Acute Dyspnea Acute Elevated troponin Acute
[2017-01-30] MEDS: COLCHICINE 0.6 MG CAP/TAB PO SCH (08:47)
[2017-01-30] MEDS: MULTIVITAMINS 1 EACH TAB PO SCH (08:48)
[2017-01-30] MEDS: METOPROLOL TARTRATE 25 MG TAB PO SCH ×2 (08:48→22:24)
[2017-01-30] MEDS: DORZOLAMIDE 2% OPTH DROPS LEFTEYE SCH ×2 (08:48→22:28)
[2017-01-30] MEDS ORDERED: ceFAZolin 2 GM/DEXTROSE 100 ML IV ONE (10:00)
[2017-01-30] MEDS: ENOXAPARIN 40 MG/0.4 ML SYR SC SCH (10:20)
--- NOTE | 2017-01-30 12:21 | GOP ---
[f rep st] OPERATIVE REPORT DATE OF OPERATION: 01/29/2017 SURGEON: Mckay Orellana DO ANESTHESIA: Jose Kruse DO PREOPERATIVE DIAGNOSIS: Pericardial thickening, concern for malignant spread. POSTOPERATIVE DIAGNOSIS: Await pathology report. PROCEDURE PERFORMED: Subxiphoid pericardial drainage with pericardial biopsy and cultures. FINDINGS: DESCRIPTION OF PROCEDURE: Patient was consented for surgery, brought to the operating room, intubat ed, monitoring lines were prepped and draped in sterile classical manner. A 3 inch incision was kylah boubacar over the xiphoid process, which was excised. The pericardium was exposed. It was thickened. I t was grasped and opened with sharp dissection. It was again thickened but no obvious studding. It was actually densely adherent to the myocardium. I with a finger gently freed up the inferior and right side as well as anteriorly as much as I safely could. It was quite densely adhered. I sent c ultures as well as cytology with fluid and a large piece of pericardium for biopsy. A single Addy drain was placed. The wound was closed in standard fashion. Patient was returned to the recovery r oom in stable condition. /[id number]/MODL
--- NOTE | 2017-01-30 12:38 | PDCARPN ---
Cardiology Progress Note Assessment/Plan: Assessment/plan: 76-year-old female with a recent admission for myopericarditis , treated with a short course of nonsteroidal anti-inflammatories. She is now readmitted with the same clinical picture, although this time her troponin is negative. Pericardium is thickened with significant fibrinous debris. These findings have progressed slightly compared with January 17. 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 She has been followed in the outpatient setting by Dr. Hendricks. s/p pericardial biopsy on 01/29. 1. pericarditis: Will treat with scheduled ibuprofen, Zantac for gastric protection, and added colchicine. Possible colchicine side effects were reviewed. ESR and CRP elevated. Differential diagnosis includes incompletely treated viral pericarditis, autoimmune process, or malignancy. The latter seems less likely based on visual inspection per Dr. Orellana. LDH, RF, MAGDA all normal. Dr. Mckay Orellana has seen the patient and plans for pericardial biopsy tomorrow. Clinically, she does not appear to have constrictive pericarditis. 2. abnormal chest CT: Followed by Dr. Hendricks. She has had a chronic cough. Pericardial biopsy cytololgy pending. CXR today for ongoing hypoxia. 3. hypertension: She is on metoprolol 4. history of SVT status post ablation. Brief AF here. She is on a beta- demond. 5. Coronary artery calcifications seen incidentally on chest CT: Previous minimally elevated troponin thought to be related to myopericarditis. Troponin negative this admission. EKG is changed since last admission. her chest pain is much more consistent with pericarditis and not acute coronary syndrome. Consider nuclear stress test as an outpatient. 6. Hypothyroidism: TSH slightly elevated. 01/30/17 12:52 Subjective: Cindy reports that the bilateral pleuritic anterior shoulder pain and upper chest discomfort she was admited with have resolved. She does have incisional pain post pericardial biopsy. No SOB. Some lightheadedness Objective: Vital Signs (8 Hrs) Temp Pulse Resp BP Pulse Ox 01/30/17 11:00 36.5 C 78 18 132/69 H 95 01/30/17 07:23 36.6 C 81 21 H 156/86 H 92 Intake/Output (24 Hrs) 01/29/17 01/30/17 01/31/17 05:59 05:59 05:59 Intake Total 1240 755 Output Total 1200 1315 Balance 40 -560 Intake: Oral (ml) 1240 105 IV Intake (ml) 450 IV Infused (ml) 200 ceFAZolin 2 GM/DEXTROSE 100 100 ml @ 200 mls/hr IV ONCALL ONE Rx#:[id number] ceFAZolin 2 GM/DEXTROSE 100 100 ml @ 200 mls/hr IV Q8HRS [facility] Rx#:[id number] Output: Urine (ml) 1200 1275 Toilet 1200 1275 Estimated Blood Loss (ml) 10 Pericardial Drain Output 30 (ml) #1 Anterior Chest 30 Pericardial Other: Weight 84.3 kg Number of Voids Toilet 1 Number of Stools Toilet 1 fatigued, pale JVP <10. RRR soft early systolic murmur LLSB Rales left base No edema Result Diagrams: 01/30/17 03:26 01/30/17 03:26 Telemetry: brief AF 01/29. Otherwise NSR ICD10 Worksheet Patient Problems: Problems Problem Status Onset Chest pain Acute Dyspnea Acute Elevated troponin Acute
[2017-01-30] MEDS: IBUPROFEN 600 MG TAB PO SCH ×2 (16:28→22:29)
[2017-01-30] MEDS ORDERED: CEFEPIME HCL 1 GM in D5W 50 ML IV SCH (17:06)
--- NOTE | 2017-01-30 17:11 | HOSPPROG ---
Hospitalist Progress Note Assessment/Plan: Pericarditis / chest pain - CT imaging abnormal with increased pericardial thickness, ?chronic. No fevers here, wbc's up and down, currently 14K. CRP and ESR elevated. BCx's NGTD. Trop elevated but flat last admission, now normal. LDH, RF, MAGDA neg. Pericardial window and biopsy done 01/[address] surgery, no pericardial drain, biopsy pending, Cx's NGTD. -Cardiology following, appreciate assistance -cont nsaids, colchicine, pt declines pepcid citing untoward side effects, will try zantac -outpatient stress test LLL PNA / HCAP - This is new from previous CXR and pt now with productive cough and tachpnea. -check lactate and PCT -if lactate elevated or spikes a fever, will repeat BCx's -sputum culture -start Cefepime Hypertension - adequate control -cont metoprolol SVT - s/p ablation, cont BB Glaucoma - cont outpt meds Nausea - improved with Zofran, cont supportive care Chronic hypoxemic respiratory failure - pt on 2 LPM O2 at night at baseline. B/ L pleural effusions noted, small. Pt followed by Dr. Hendricks, Pulm, for chronic cough. CT with reticular nodular opacities, ?ANGELIQUE. 94% on 3L -treating for HCAP as above -discussed with pulmonary regarding britt MERINO, who will consult tomorrow DVT PPLX - Lovenox Full code Dispo - cont inpt Subjective: Pt c/o some SOB and productive cough, yellowish sputum. No CP, except when coughing. No fevers. Objective: Vital Signs Temp Pulse Resp BP Pulse Ox 37.1 C 94 23 H 182/94 H 94 01/30/17 15:14 01/30/17 15:14 01/30/17 15:14 01/30/17 15:14 01/30/17 15:14 Microbiology 01/29/17 18:30 Mycobacterial Smear (FAITH) - Final Pericardial Fluid - Aspirate 01/29/17 18:30 Gram Stain - Final Pericardial Fluid - Anaerobic Tube/Swab Laboratory Results 01/30/17 03:26 01/30/17 03:26 01/29/17 01/30/17 01/31/17 05:59 05:59 05:59 Intake Total 1240 755 350 Output Total 1200 1315 Balance 40 -560 350 - Physical Exam Constitutional: no apparent distress Eyes: PERRL Ears, Nose, Mouth, Throat: moist mucous membranes Cardiovascular: regular rate and rhythym Respiratory: no respiratory distress, inspiratory crackles Gastrointestinal: normoactive bowel sounds, soft, non-tender abdomen Skin: warm Musculoskeletal: full muscle strength Neurologic: AAOx3 Psychiatric: interacting appropriately ICD10 Worksheet Patient Problems: Problems Problem Status Onset Chest pain Acute Dyspnea Acute Elevated troponin Acute
[2017-01-30] MEDS ORDERED: PANTOPRAZOLE SODIUM 40 MG TAB PO SCH (18:00)
[2017-01-30] MEDS ORDERED: RANITIDINE HCL 150 MG/10 ML UDCUP PO SCH (21:00)
[2017-01-30] MEDS ORDERED: diphenhydrAMINE 25 MG CAP PO PRN (21:15)
[2017-01-30] MEDS: AMITRIPTYLINE HCL 50 MG TAB PO SCH (22:24)
[2017-01-30] MEDS: LATANOPROST 0.005% 2.5 ML OPHT DROPS EACHEYE SCH (22:28)
--- NOTE | 2017-01-30 23:55 | CPEKG ---
Heart Rate: 124 RR Interval: 484 QRSD Interval: 80 QT Interval: 316 QTC Interval: 454 QRS [place]: 13 T Wave [place]: -79 EKG Severity - ABNORMAL ECG - EKG Impression: ATRIAL FIBRILLATION, V-RATE 94-179 EKG Impression: NONSPECIFIC T ABNORMALITIES, DIFFUSE LEADS Electronically Signed By: Lopez Gutiérrez 31-Jan-2017 14:17:19
[2017-01-31] MEDS ORDERED: MEROPENEM 1 GM in NS 100 ML IV SCH (03:00)
[2017-01-31 04:53] LABS: % IMMATURE GRANULYOCYTES 0.5 % (0.0-1.1); ABSOLUTE IMMATURE GRANULOCYTES 0.05 10^3/uL (0.00-0.10); ADD DIFF? NO; ADD MORPH? NO; ADD SCAN? NO; ATYPICAL LYMPHOCYTE FLAG 10 (0-99); FRAGMENT RBC FLAG 0 (0-99); HEMATOCRIT 33.6 % (38.0-47.0); HEMOGLOBIN 10.4 g/dL (12.6-16.3); LEFT SHIFT FLG 0 (0-99); LIPEMIA HEMOLYSIS FLAG 80 (0-99); MEAN CELL HEMOGLOBIN 26.7 pg (27.9-34.1); MEAN CELL VOLUME 86.2 fL (81.5-99.8); MEAN PLATELET VOLUME 10.2 fL (8.7-11.7); PLATELET CLUMPS FLAG 0 (0-99); PLATELET COUNT 402 10^3/uL (150-400); RED CELL DISTRIBUTION WIDTH 14.7 % (11.5-15.2)
[2017-01-31 05:13] LABS: ANION GAP 12 mEq/L (8-16); CALCIUM 8.6 mg/dL (8.5-10.4); CARBON DIOXIDE 29 mEq/l (22-31); CHLORIDE 103 mEq/L (97-110); CREATININE 0.8 mg/dL (0.6-1.0); GLOMERULAR FILTRATION RATE > 60; GLUCOSE 103 mg/dL (70-100); POTASSIUM 4.7 mEq/L (3.5-5.2); SODIUM 144 mEq/L (134-144)
[2017-01-31] MEDS: LEVOTHYROXINE 100 MCG TAB PO SCH (06:30)
[2017-01-31] MEDS: MULTIVITAMINS 1 EACH TAB PO SCH (09:03)
[2017-01-31] MEDS: COLCHICINE 0.6 MG CAP/TAB PO SCH (09:03)
[2017-01-31] MEDS: METOPROLOL TARTRATE 25 MG TAB PO SCH ×2 (09:03→22:05)
[2017-01-31] MEDS: ENOXAPARIN 40 MG/0.4 ML SYR SC SCH (09:04)
[2017-01-31] MEDS: DORZOLAMIDE 2% OPTH DROPS LEFTEYE SCH ×2 (09:04→20:20)
[2017-01-31] MEDS: IBUPROFEN 600 MG TAB PO SCH ×3 (09:04→22:05)
[2017-01-31] MEDS ORDERED: GUAIFENESIN/DM 10 ML UDCUP PO PRN (10:37)
--- NOTE | 2017-01-31 10:48 | HOSPPROG ---
Hospitalist Progress Note Assessment/Plan: Pericarditis / chest pain - CT imaging abnormal with increased pericardial thickness, ?chronic. No fevers here, wbc's up and down, currently 10K. CRP and ESR elevated. BCx's NGTD. LDH, RF, MAGDA neg. Trop elevated but flat last admission, now normal. Pericardial window and biopsy done 01/[address] surgery, no pericardial drain, biopsy pending, Cx's NGTD. Consider connective tissue disease despite neg MAGDA. -Cardiology following, appreciate assistance -cont nsaids, colchicine, pt declines pepcid / PPI citing untoward side effects -send Anti-SLC 70, HARMEET -outpatient stress test LLL PNA / HCAP - This is new from previous CXR and pt now with productive cough and tachypnea. Lactate nl, PCT low risk. -Had some type of reaction to Cefepime with tingling, changed to Meropenem last night -consider non-con chest CT for further clarification -sputum culture ordered Chronic hypoxemic respiratory failure - pt on 2 LPM O2 at night at baseline. B/ L pleural effusions noted, small. Pt followed by Dr. Hendricks, Pulm, for chronic cough. CT with reticular nodular opacities, ?ANGELIQUE. 94% on 3L. Reviewed imaging with Pulm yesterday. -treating for HCAP as above -Pulm to consult today Paroxysmal A fib - this is not new. Recent echo reviewed. No valve disease. Chads-vasc 3, 4% annual stroke risk. -will increase metoprolol in attempt to prevent RVR -discussed stroke prevention and bleeding risk with anti-coagulation, will initiate therapeutic Lovenox for now while inpt -pt interested in transitioning to Eliquis or Xarelto at [place] Hypertension - sub-optimal control -increased metoprolol as above SVT - s/p ablation, cont BB at increased dose as above Glaucoma - cont outpt meds Nausea - improved with Zofran, cont supportive care DVT PPLX - Lovenox Full code Dispo - cont inpt Subjective: Pt had episode of arm tingling and became very anxious during infusion protonix. She notes h/o prior side effects with PPI. Symptoms seemed to persist after cefepime infusion, some concern for reaction to cefepime. No fevers. She is still coughing, some SOB. No fevers. Objective: Vital Signs Temp Pulse Resp BP Pulse Ox 36.6 C 77 19 154/81 H 92 01/31/17 07:57 01/31/17 07:57 01/31/17 04:00 01/31/17 07:57 01/31/17 07:57 Microbiology 01/29/17 18:30 Mycobacterial Smear (FAITH) - Final Pericardial Fluid - Aspirate 01/29/17 18:30 Gram Stain - Final Pericardial Fluid - Anaerobic Tube/Swab Laboratory Results 01/31/17 03:28 01/31/17 03:28 01/30/17 01/31/17 02/01/17 05:59 05:59 05:59 Intake Total 755 900 Output Total 1315 1000 400 Balance -560 -100 -400 - Physical Exam Constitutional: no apparent distress Eyes: PERRL Ears, Nose, Mouth, Throat: moist mucous membranes Cardiovascular: regular rate and rhythym Respiratory: no respiratory distress, other (diminised breath sounds at LLL with faint crackles) Gastrointestinal: normoactive bowel sounds, soft, non-tender abdomen Skin: warm Musculoskeletal: full muscle strength Neurologic: AAOx3 Psychiatric: interacting appropriately ICD10 Worksheet Patient Problems: Problems Problem Status Onset Chest pain Acute Dyspnea Acute Elevated troponin Acute
[2017-01-31] MEDS: MEROPENEM 1 GM in NS 100 ML IV SCH ×2 (10:52→18:21)
[2017-01-31] MEDS ORDERED: METOPROLOL TARTRATE 25 MG TAB PO ONE (11:00)
--- NOTE | 2017-01-31 11:37 | PDCARPN ---
Cardiology Progress Note Assessment/Plan: Assessment/plan: 76-year-old female with a recent admission for myopericarditis , treated with a short course of nonsteroidal anti-inflammatories. She is now readmitted with the same clinical picture, although this time her troponin is negative. Pericardium is thickened with significant fibrinous debris. These findings have progressed slightly compared with January 17. 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 s/p pericardial biopsy on 01/29. 1. pericarditis: Will treat with scheduled ibuprofen and colchicine. Possible colchicine side effects were reviewed. ESR and CRP elevated. Differential diagnosis includes incompletely treated viral pericarditis, autoimmune process, or malignancy. The latter seems less likely based on visual inspection per Dr. Orellana. LDH, RF, MAGDA all normal. Attempted H2 demond and PPI for gastric protection, but she had side effects. 2. abnormal chest CT: She has had a chronic cough. Pericardial biopsy cytololgy pending. CXR 01/30 with LLL infilrate and she is now on abx. pulm consult. Question systemic process also involving pericardium. 3. hypertension: She is on metoprolol; increase this today. 4. history of SVT status post ablation. Brief AF here. She is on a beta- demond. Add full dose lovenox. Discuss Eliquis at discharge. 5. Coronary artery calcifications seen incidentally on chest CT: Previous minimally elevated troponin thought to be related to myopericarditis. Troponin negative this admission. EKG is changed since last admission. her chest pain is much more consistent with pericarditis and not acute coronary syndrome. Consider nuclear stress test as an outpatient. 6. Hypothyroidism: TSH slightly elevated. Outpt follow up. 01/31/17 11:38 Subjective: Cindy complains of longstanding cough, now slightly more productive. No hemoptysis. The bilateral, pleuritic shoulder pain she was admitted with has resolved. Mangeable incisional pain post pericardial window. Reviewed/Discussed With: hospitalist (Dr. Wilson) Objective: Vital Signs (8 Hrs) Temp Pulse Resp BP Pulse Ox 01/31/17 07:57 36.6 C 77 154/81 H 92 01/31/17 04:00 36.9 C 81 19 145/85 H 97 Intake/Output (24 Hrs) 01/30/17 01/31/17 02/01/17 05:59 05:59 05:59 Intake Total 755 900 Output Total 1315 1000 400 Balance -560 -100 -400 Intake: Oral (ml) 105 900 IV Intake (ml) 450 IV Infused (ml) 200 ceFAZolin 2 GM/DEXTROSE 100 100 ml @ 200 mls/hr IV ONCALL ONE Rx#:[id number] ceFAZolin 2 GM/DEXTROSE 100 100 ml @ 200 mls/hr IV Q8HRS [facility] Rx#:[id number] Output: Urine (ml) 1275 1000 400 Toilet 1275 1000 400 Estimated Blood Loss (ml) 10 Pericardial Drain Output 30 (ml) #1 Anterior Chest 30 Pericardial Other: Weight 84.3 kg Number of Voids Toilet 1 Number of Stools Toilet 1 appears ill, pale, fatigued JVP <10 RRR no m/r/g Decreased BS and rhonchi LLL No edema CXR reviewed: LLL infiltrate Result Diagrams: 01/31/17 03:28 01/31/17 03:28 Telemetry: NSR with intermittent AF/RVR ICD10 Worksheet Patient Problems: Problems Problem Status Onset Chest pain Acute Dyspnea Acute Elevated troponin Acute
[2017-01-31] MEDS: guaiFENesin 600 MG TAB.ER PO SCH ×2 (13:45→21:04)
[2017-01-31] MEDS: LATANOPROST 0.005% 2.5 ML OPHT DROPS EACHEYE SCH (20:20)
[2017-01-31] MEDS: AMITRIPTYLINE HCL 50 MG TAB PO SCH (20:24)
[2017-01-31] MEDS ORDERED: ENOXAPARIN 40 MG/0.4 ML SYR SC SCH (21:00)
[2017-01-31] MEDS: ENOXAPARIN 80 MG/0.8 ML SYR SC SCH (21:04)
[2017-02-01] MEDS: MEROPENEM 1 GM in NS 100 ML IV SCH ×2 (02:54→11:07)
[2017-02-01 04:59] LABS: ABSOLUTE IMMATURE GRANULOCYTES 0.08 10^3/uL (0.00-0.10); ADD DIFF? NO; ADD MORPH? NO; ADD SCAN? NO; ATYPICAL LYMPHOCYTE FLAG 10 (0-99); FRAGMENT RBC FLAG 0 (0-99); HEMOGLOBIN 10.2 g/dL (12.6-16.3); LEFT SHIFT FLG 0 (0-99); LIPEMIA HEMOLYSIS FLAG 80 (0-99); MEAN CELL HEMOGLOBIN 26.2 pg (27.9-34.1); MEAN CELL HEMOGLOBIN CONCENTR. 30.9 g/dL (32.4-36.7); MEAN CELL VOLUME 84.8 fL (81.5-99.8); MEAN PLATELET VOLUME 10.3 fL (8.7-11.7); PLATELET CLUMPS FLAG 10 (0-99); PLATELET COUNT 412 10^3/uL (150-400); RED BLOOD CELL COUNT 3.89 10^6/uL (4.18-5.33); RED CELL DISTRIBUTION WIDTH 14.7 % (11.5-15.2)
[2017-02-01] MEDS: LEVOTHYROXINE 100 MCG TAB PO SCH (07:19)
[2017-02-01] MEDS: ENOXAPARIN 80 MG/0.8 ML SYR SC SCH (07:49)
[2017-02-01] MEDS: COLCHICINE 0.6 MG CAP/TAB PO SCH (07:51)
[2017-02-01] MEDS: IBUPROFEN 600 MG TAB PO SCH ×3 (07:51→21:55)
[2017-02-01] MEDS: MULTIVITAMINS 1 EACH TAB PO SCH (07:53)
[2017-02-01] MEDS: METOPROLOL TARTRATE 25 MG TAB PO SCH ×2 (07:53→20:25)
[2017-02-01] MEDS: guaiFENesin 600 MG TAB.ER PO SCH ×2 (07:58→20:39)
[2017-02-01] MEDS: DORZOLAMIDE 2% OPTH DROPS LEFTEYE SCH ×2 (08:01→18:59)
--- NOTE | 2017-02-01 09:07 | HOSPPROG ---
Hospitalist Progress Note Assessment/Plan: #Acute pericarditis: cont Advil through 02/06. Did not tolerate H2-demond or PPI for GI protection #Atypical chest pain: due to above #HCAP: LLL PNA (CXR personally reviewed). Sputum cx NGTD. I discussed with Dr. Ambrose for possible MAC infection, but he had low-suspicion. Will treat for HCAP and repeat imaging as outpatient. Transition to Cefdinir and Azithro this reilly to monitor for side effects #Paroxsymal atrial fib: brief run here. Cont BB. Consider Eliquis at discharge #h/o SVt: s/p ablation #chronic hypoxemic resp failure: #Leukocytosis: resolved #Glaucoma: home meds #Diet: regular #DVT ppx: on Eliquis #Disp: DC tomorrow if tolerates abx overnight Subjective: Nonproductive cough Objective: Vital Signs Temp Pulse Resp BP Pulse Ox 36.2 C 79 16 166/96 H 92 02/01/17 08:00 02/01/17 08:00 02/01/17 08:00 02/01/17 07:53 02/01/17 08:00 Microbiology 01/31/17 11:30 - Final Sputum, Expectorated 01/29/17 18:30 Gram Stain - Final Pericardial Fluid - Anaerobic Tube/Swab Laboratory Results 02/01/17 03:42 01/31/17 03:28 01/31/17 02/01/17 02/02/17 05:59 05:59 05:59 Intake Total 900 650 125 Output Total 1000 2350 Balance -100 -1700 125 - Physical Exam Constitutional: other (tired-appearing) Eyes: PERRL Ears, Nose, Mouth, Throat: moist mucous membranes, hearing normal Cardiovascular: regular rate and rhythym, no murmur, rub, or gallop, other ( pericardiotomy site healing well) Respiratory: no respiratory distress, other (decreased BS LL base) Gastrointestinal: normoactive bowel sounds, soft, non-tender abdomen Genitourinary: no bladder fullness Skin: warm Musculoskeletal: full muscle strength, other (mild TTP left ankle without brusing) Neurologic: AAOx3, CN II-XII Intact Psychiatric: interacting appropriately ICD10 Worksheet Patient Problems: Problems Problem Status Onset Chest pain Acute Dyspnea Acute Elevated troponin Acute
[2017-02-01] MEDS: BISACODYL 10 MG SUPP PR PRN (10:27)
--- NOTE | 2017-02-01 11:25 | PDCARPN ---
Cardiology Progress Note Assessment/Plan: Assessment/plan: 76-year-old female with a recent admission for myopericarditis , treated with a short course of nonsteroidal anti-inflammatories. She is now readmitted with the same clinical picture, although this time her troponin is negative. Pericardium is thickened with significant fibrinous debris. These findings have progressed slightly compared with January 17. 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 s/p pericardial biopsy on 01/29. 1. pericarditis: Will treat with scheduled ibuprofen and colchicine. Possible colchicine side effects were reviewed. Continue ibuprofen until February 06. ESR and CRP elevated. Differential diagnosis includes incompletely treated viral pericarditis, autoimmune process, or malignancy. The latter seems less likely based on visual inspection per Dr. Orellana. LDH, RF, MAGDA all normal. A few other immunology labs are pending. Attempted H2 demond and PPI for gastric protection, but she had side effects. 2. abnormal chest CT: She has had a chronic cough. Pericardial biopsy cytology pending. CXR 01/30 with LLL infilrate and she is now on abx with clinical improvement. Will likely need outpatient pulmonary follow-up. Still requires oxygen as well. 3. hypertension: She is on metoprolol which was increased this admission. Add Amlodipine. 4. history of SVT status post ablation. Brief AF here. She is on a beta- demond. Risks and benefits of Eliquis were reviewed and she is willing to proceed. 5. Coronary artery calcifications seen incidentally on chest CT: Previous minimally elevated troponin thought to be related to myopericarditis. Troponin negative this admission. EKG is changed since last admission. her chest pain is much more consistent with pericarditis and not acute coronary syndrome. Consider nuclear stress test as an outpatient. 6. Hypothyroidism: TSH slightly elevated. Outpt follow up. 02/01/17 11:26 Subjective: Cindy feels much better. She is not having any pleuritic discomfort and she feels that her restricted breathing has normalized. Reviewed/Discussed With: hospitalist (Dr. Quintanilla), multidisciplinary team Objective: Vital Signs (8 Hrs) Temp Pulse Resp BP Pulse Ox 02/01/17 08:00 36.2 C 79 16 92 02/01/17 07:53 74 166/96 H 02/01/17 03:50 36.5 C 74 18 175/96 H 96 Intake/Output (24 Hrs) 01/31/17 02/01/17 02/02/17 05:59 05:59 05:59 Intake Total 900 650 125 Output Total 1000 2350 Balance -100 -1700 125 Intake: Oral (ml) 900 650 IV Infused (ml) 125 Meropenem 1 gm In Ns 100 125 ml @ 120 mls/hr IV Q8H [facility] Rx#:[id number] Output: Urine (ml) 1000 2350 Bedside Commode 1650 Toilet 1000 700 Other: Number of Voids Bedside Commode 1 Toilet 1 No acute distress JVP 12. Regular rate and rhythm without murmur or gallop Rhonchorous breath sounds left base. Minimal rales right base. No wheezes. Pericardiotomy site dry and intact Extremities are warm well perfused without cyanosis clubbing or edema Result Diagrams: 02/01/17 03:42 01/31/17 03:28 Telemetry: Normal sinus rhythm ICD10 Worksheet Patient Problems: Problems Problem Status Onset Chest pain Acute Dyspnea Acute Elevated troponin Acute
[2017-02-01 15:38] LABS: ANTI-CENTROMERE ANTIBODIES <0.2 U; MISCELLANEOUS TEST See Comments
[2017-02-01] MEDS: AZITHROMYCIN 250 MG TAB PO SCH (16:03)
[2017-02-01] MEDS: LATANOPROST 0.005% 2.5 ML OPHT DROPS EACHEYE SCH (18:59)
[2017-02-01] MEDS: APIXABAN 5 MG TAB PO SCH (20:27)
[2017-02-01] MEDS: CEFDINIR 300 MG CAP PO SCH (20:35)
[2017-02-01] MEDS: AMITRIPTYLINE HCL 50 MG TAB PO SCH (20:35)
[2017-02-02 03:52] VITALS: O2SAT 97
[2017-02-02 04:07] LABS: HEMATOCRIT 33.6 % (38.0-47.0); HEMOGLOBIN 10.6 g/dL (12.6-16.3); LIPEMIA HEMOLYSIS FLAG 80 (0-99); MEAN CELL HEMOGLOBIN 26.6 pg (27.9-34.1); MEAN CELL HEMOGLOBIN CONCENTR. 31.5 g/dL (32.4-36.7); MEAN CELL VOLUME 84.4 fL (81.5-99.8); PLATELET COUNT 444 10^3/uL (150-400); RED BLOOD CELL COUNT 3.98 10^6/uL (4.18-5.33); RED CELL DISTRIBUTION WIDTH 14.2 % (11.5-15.2)
[2017-02-02 04:23] LABS: ANION GAP 11 mEq/L (8-16); CALCIUM 8.9 mg/dL (8.5-10.4); CARBON DIOXIDE 28 mEq/l (22-31); CHLORIDE 100 mEq/L (97-110); CREATININE 0.7 mg/dL (0.6-1.0); GLOMERULAR FILTRATION RATE > 60; GLUCOSE 105 mg/dL (70-100); POTASSIUM 4.3 mEq/L (3.5-5.2); SODIUM 139 mEq/L (134-144)
[2017-02-02] MEDS: LEVOTHYROXINE 100 MCG TAB PO SCH (06:13)
[2017-02-02 07:51] VITALS: BP 161/97; PULSE 82; RESP 18; TEMP 98.1
[2017-02-02] MEDS: APIXABAN 5 MG TAB PO SCH (08:42)
[2017-02-02] MEDS: METOPROLOL TARTRATE 25 MG TAB PO SCH (08:43)
[2017-02-02] MEDS: COLCHICINE 0.6 MG CAP/TAB PO SCH (08:43)
[2017-02-02] MEDS: AZITHROMYCIN 250 MG TAB PO SCH (08:43)
[2017-02-02] MEDS: IBUPROFEN 600 MG TAB PO SCH (08:43)
[2017-02-02] MEDS: CEFDINIR 300 MG CAP PO SCH (08:43)
[2017-02-02] MEDS: MULTIVITAMINS 1 EACH TAB PO SCH (08:43)
[2017-02-02] MEDS: guaiFENesin 600 MG TAB.ER PO SCH (08:44)
[2017-02-02] MEDS: DORZOLAMIDE 2% OPTH DROPS LEFTEYE SCH (08:44)
--- NOTE | 2017-02-02 09:58 | PDIAF ---
- Diagnosis Diagnosis: pericarditis Code Status: Full Code - Medication Management Discharge Medications: Medications to Continue on Transfer Amitriptyline HCl [Elavil 50 mg (*)] 50 mg PO HS 04/03/10 [Last Taken 01/26/17] Diazepam [Valium 5 MG (*)] 2.5 mg PO DAILY PRN 04/03/10 [Last Taken 01/26/17] Levothyroxine [Synthroid 100 mcg (*)] 100 mcg PO DAILY06 04/03/10 [Last Taken ] Propranolol HCl [Inderal 20mg (*)] 10 - 20 mg PO DAILY 04/03/10 [Last Taken 06/02] Dorzolamide 2% [Trusopt 2% (*)] 1 drops LEFTEYE BID 01/16/17 [Last Taken ] Herbals/Supplements -Info Only 1 ea PO DAILY 01/16/17 [Last Taken 01/26/17] Latanoprost 0.005% [Xalatan 0.005% (*)] 1 drops EACHEYE HS 01/16/17 [Last Taken 01/26/17] Multivitamins [Multivitamin (*)] 1 each PO DAILY 01/16/17 [Last Taken 01/26/17] Methocarbamol [Robaxin 750 mg (*)] 750 mg PO QID PRN 01/27/17 [Last Taken 1 Week Ago] Apixaban [Eliquis] 5 mg PO BID #60 tab 02/02/17 [Last Taken Unknown] Azithromycin 500 mg PO DAILY #3 tablet 02/02/17 [Last Taken Unknown] Cefdinir [Omnicef (*)] 300 mg PO BID #6 cap 02/02/17 [Last Taken Unknown] Colchicine [Colchicine (*)] 0.6 mg PO DAILY #30 ea 02/02/17 [Last Taken Unknown] Ibuprofen [Motrin (*)] 600 mg PO TID #30 tab 02/02/17 [Last Taken Unknown] Metoprolol Tartrate [Lopressor 25 mg (*)] 25 mg PO BID #60 tab 02/02/17 [Last Taken Unknown] amLODIPine BESYLATE [Norvasc 2.5 mg (*)] 2.5 mg PO DAILY #30 tab 02/02/17 [Last Taken Unknown] guaiFENesin [Mucinex 600 MG (*)] 600 mg PO BID #60 tab.er 02/02/17 [Last Taken Unknown] Discharge Medications: Refer to the Discharge Home Medication list for PRN reason. - Orders Services needed: Home Care, Registered Nurse, Physical Therapy Home Care Face to Face: I certify that this patient was under my care and that I had the required pljo-ys-terv encounter meeting the encounter requirements on the discharge day. My findings support the fact that the patient is homebound as defined in CMS Chapter 7 Medicare Benefits Manual 30.1.1, The condition of the patient is such that there exists a normal inability to leave home and consequently, leaving home would require a considerable and taxing effort. Diet Recommendation: no restrictions on diet Diet Texture: Regular Texture Diet - Follow Up Care Current Providers and Referrals: Jacquie Nicolas MD [Primary Care Provider] - As per Instructions Patrick Barboza MD [Medical Doctor] - follow up in 2 weeks (call Saturday 2 make appointment in 2 weeks) Ish Hendricks MD [Medical Doctor] - (Call for appointment in 3-4 weeks for repeat chest x-ray)
--- NOTE | 2017-02-02 11:04 | PDHOMEO2F ---
Home Oxygen Face to Face Home Orders: I certify that a physician or a nurse practitioner or physician's assistant teacher primary has had a emum-gu-uxtr encounter with this patient on the date of this order due to the diagnosis listed, which relates to the primary reason the patient requires home oxygen. Alternative treatments have been tried, or considered, and deemed ineffective. It is anticipated that supplemental oxygen will result in improvement with treatment. Home oxygen qualifying diagnosis: acute on chronic hypoxemic resp failure Home oxygen secondary diagnosis: PNA, pericarditis SpO2 on room air (%): 86 Frequency of home oxygen needed: continuous Home oxygen liters per minute: 2 Home oxygen delivery device: nasal cannula Concentrator: No E-tanks for mobility and back up: No I certify that, based on these findings, the home oxygen is medically necessary for this patient for the following length of time. Length of time home oxygen needed: 1 month
--- NOTE | 2017-02-02 11:21 | PDHOMEO2F ---
Home Oxygen Face to Face Home Orders: I certify that a physician or a nurse practitioner or physician's delivery assistant has had a nvrm-mn-oamn encounter with this patient on the date of this order due to the diagnosis listed, which relates to the primary reason the patient requires home oxygen. Alternative treatments have been tried, or considered, and deemed ineffective. It is anticipated that supplemental oxygen will result in improvement with treatment. Home oxygen qualifying diagnosis: hypoxia Home oxygen secondary diagnosis: pericarditis SpO2 on room air (%): 86 Frequency of home oxygen needed: continuous Home oxygen liters per minute: 2 Home oxygen delivery device: nasal cannula Concentrator: No E-tanks for mobility and back up: Yes If ordering portable O2, is the patient mobile in the home?: Yes I certify that, based on these findings, the home oxygen is medically necessary for this patient for the following length of time. Length of time home oxygen needed: 1 month
--- NOTE | 2017-02-02 11:21 | HOSPPROG ---
Hospitalist Progress Note Assessment/Plan: #Acute pericarditis: cont Advil through 02/06. Did not tolerate H2-demond or PPI for GI protection. colchicine x 3 months #Atypical chest pain: due to above #HCAP: LLL PNA (CXR personally reviewed). Complete 7 days abx #Paroxsymal atrial fib: brief run here. Cont BB. Eliquis #h/o SVt: s/p ablation #chronic hypoxemic resp failure: FU with Dr Hendricks #Leukocytosis: resolved #Glaucoma: home meds #Diet: regular #DVT ppx: on Eliquis #Disp: DC today Subjective: feeling stronger today Objective: Vital Signs Temp Pulse Resp BP Pulse Ox 36.7 C 82 18 161/97 H 97 02/02/17 07:50 02/02/17 07:50 02/02/17 07:50 02/02/17 07:50 02/02/17 07:50 Microbiology 01/29/17 18:30 Gram Stain - Final Pericardial Fluid - Anaerobic Tube/Swab 01/31/17 11:30 - Final Sputum, Expectorated Sputum Culture - Final Eve Albicans Presumptive Laboratory Results 02/02/17 03:02 02/02/17 03:02 02/01/17 02/02/17 02/03/17 05:59 05:59 05:59 Intake Total 650 545 Output Total 2350 2900 1000 Balance -1700 -2355 -1000 - Physical Exam Constitutional: no apparent distress, other (brighter today) Eyes: PERRL Ears, Nose, Mouth, Throat: moist mucous membranes Cardiovascular: regular rate and rhythym, no murmur, rub, or gallop Respiratory: no respiratory distress, other (left lower lobe) Gastrointestinal: normoactive bowel sounds, soft, non-tender abdomen Genitourinary: no bladder fullness, no bladder tenderness Skin: warm Musculoskeletal: full muscle strength Neurologic: AAOx3, CN II-XII Intact Psychiatric: interacting appropriately ICD10 Worksheet Patient Problems: Problems Problem Status Onset Chest pain Acute Dyspnea Acute Elevated troponin Acute
--- NOTE | 2017-02-02 13:28 | GDS ---
[f rep st] DISCHARGE SUMMARY DISCHARGE DIAGNOSES: 1. Acute on chronic hypoxemic respiratory failure. 2. Pericarditis. 3. Left lower lobe pneumonia. 4. Hypertension. 5. History of supraventricular tachycardia, status post ablation. 6. Paroxysmal atrial fibrillation. 7. Coronary artery disease. 8. Hypothyroidism. 9. Deconditioning. 10. Leukocytosis. 11. Glaucoma. PROCEDURES: Echocardiogram, 01/27/2017: LV is normal size and function. There is a large echogenicity noted in the pericardial space, attached to the RV free wall. Mild TR. RVSP is 36 mmHg, small pericardial effusion. Surgery, 01/30/2017: Subxiphoid pericardial drainage with pericardial biopsy. HISTORY OF PRESENT ILLNESS: A 76-year-old female with history of recent myopericarditis, hospitalized 01/16/2017, who was discharged on the with appropriate treatment. She was doing well at return of home on dose of Motrin, but then developed intermittent fevers, and a restrictive sensation in her chest. Also noted shortness of breath. She has had poor appetite, energy and not sleeping well. Denies skin or rash changes. Has had intermittent lower extremity edema at the end of the day. HOSPITAL COURSE BY PROBLEM: 1. Myopericarditis: Suspect viral. She was noted to have pericardial thickening on echocardiogram. Underwent biopsy and pathology was negative for malignancy. It showed acute on chronic nonspecific pericarditis. Patient was evaluated by Cardiology. She will be treated with NSAIDs through the 06 of February, and colchicine for 3 months. She will follow up with Dr. Barboza in 2 weeks. Also sent autoimmune screening, which was negative, including MAGDA, anticentromere and RF. 2. Paroxysmal atrial fibrillation: Has a history of supraventricular tachycardia, but had a brief episode of atrial fibrillation here. She is started on beta demond, as well as Eliquis. Given risk of GI bleeding in the setting of NSAIDs and Eliquis, we trialed PPI and H2 demond. She did not tolerate due to GI upset. We did stress the importance of trying to take these , but she declined and is aware of the risk. 3. Left lower lobe pneumonia: [place] through hospitalization patient appeared septic. Repeat x-ray demonstrated left lower lobe pneumonia. She was empirically treated with IV antibiotics. There was concern for possible MAC infection. Imaging was reviewed with Dr. Ambrose, with pulmonology. At this point, we will treat this acute pneumonia for 7 days, and she should followup with her shactor helper, Dr. Hendricks, in 1 month time for repeat imaging. 4. Hypertension. Continue home medications. 5. Acute on chronic hypoxemic respiratory failure: This is secondary to pneumonia. She will be sent home on oxygen. 6. Hypothyroidism. Continue levothyroxine. 7. Leukocytosis: Secondary to infection, this is resolved. 8. Glaucoma. Resume home medications. 9. Diet: Regular. 10. Deconditioning, home PT. DISCHARGE CONDITION: Patient is stable for discharge. FOLLOW UP: 1. Dr. Barboza in [address] Hendricks in 1 month. 3. Her primary care physician within 1-2 weeks. Time spent on discharge 60 min counseling patient on meds, coordinating FU and discussing case with Dr. Herrmann /[id number]/MODL CRAIG
== END 2017-02-02 13:51 | disposition home health service (06) | DRG 270 ==
LOC: F2W 12:55
PROVIDERS: ADMIT Hospitalist; ATTEND Hospitalist
PROC: 02BN0ZX Excision of Pericardium, Open Approach, Diagnostic (ICD-10-PCS; principal; 2017-01-29 16:30)
PROC: 0W9D00Z Drainage of Pericardial Cavity with Drainage Device, Open Approach (ICD-10-PCS; principal; 2017-01-29 16:30)
DX: I30.0 Acute nonspecific idiopathic pericarditis (principal); J96.21 Acute and chronic respiratory failure with hypoxia; J18.9 Pneumonia, unspecified organism; J90 Pleural effusion, not elsewhere classified; I30.1 Infective pericarditis; I10 Essential (primary) hypertension; I48.0 Paroxysmal atrial fibrillation; I25.10 Atherosclerotic heart disease of native coronary artery without angina pectoris; E03.9 Hypothyroidism, unspecified; H40.9 Unspecified glaucoma; Z96.652 Presence of left artificial knee joint
CPT/HCPCS: 86235-90; 97116-GP; 97161-GP; 97530-GP; G8978-GP-CI; G8979-GP-CI; J0690; J0692; J1100; J1170; J1650; J1885; J2185; J2250; J2405; J2704; J3010; J3490

== ENCOUNTER → 2017-04-16 | Outpatient (CLI) | payer OTHER | LOC: FIMAGING 14:14 → EDSTATUS 14:15 | PROVIDERS: ATTEND Internal Medicine Critical Care Medicine | DX: J90 Pleural effusion, not elsewhere classified (principal); I50.9 Heart failure, unspecified ==

== ENCOUNTER → 2017-06-13 | Outpatient (CLI) | payer OTHER | LOC: FIMAGING 13:25 | PROVIDERS: ATTEND Family Medicine | DX: J31.0 Chronic rhinitis (principal); K21.9 Gastro-esophageal reflux disease without esophagitis; R91.8 Other nonspecific abnormal finding of lung field ==

== ENCOUNTER → 2017-10-01 | Outpatient (CLI) | payer OTHER | LOC: FIMAGING 11:54 | PROVIDERS: ATTEND Family Medicine | DX: Z12.31 Encounter for screening mammogram for malignant neoplasm of breast (principal); Z80.3 Family history of malignant neoplasm of breast ==

== ENCOUNTER → 2018-03-17 | Outpatient (CLI) | payer OTHER | LOC: FIMAGING 10:44 | PROVIDERS: ATTEND Family Medicine | DX: Z13.820 Encounter for screening for osteoporosis (principal); M81.0 Age-related osteoporosis without current pathological fracture; E07.9 Disorder of thyroid, unspecified; Z78.0 Asymptomatic menopausal state; Z87.81 Personal history of (healed) traumatic fracture ==

== ENCOUNTER 2018-04-25 10:20 | Emergency (ER) | payer OTHER ==
--- NOTE | 2018-04-25 10:46 | EDPHY ---
H & P Stated Complaint: short of breath, jaw pain Time Seen by Provider: 04/25/18 10:29 HPI/ROS: 77 yo F presents c/o several days of feeling fatigue, chest heaviness , shortness of breath, and her knee has been swelling for approx 4 days. She denies fever or chills, no cough, no unusual leg swelling. she complains of right knee swelling for several days, and that this is very common for her. Her left knee has a TKR, and rarely swells. Review of systems As per HPI General no fever no chills no weakness, pos fatigue HEENT no eye pain no eye discharge. No eye redness, no sore throat Respiratory no cough, pos shortness of breath Cardiac no chest pain, no peripheral edema GI no abdominal pain, no diarrhea, no constipation, no nausea, no vomiting no flank pain, no hematuria, no dysuria Musculoskeletal no myalgias, pos joint pain Heme no easy bruising, no easy bleeding Endo no polyuria, no polydipsia Skin no rashes, no pruritus Neuro no syncope, no dizziness, no headaches Psych is no suicidal ideation, no homicidal ideation Source: Patient Exam Limitations: No limitations - Personal History Current Tetanus Diphtheria and Acellular Pertussis (TDAP): Yes Tetanus Vaccine Date: within ten years - Medical/Surgical History Hx Asthma: Yes Hx Chronic Respiratory Disease: No Hx Diabetes: No Hx Cardiac Disease: Yes Hx Renal Disease: No Hx Cirrhosis: No Hx Alcoholism: No Hx HIV/AIDS: No Hx Splenectomy or Spleen Trauma: No Other PMH: HTN, SVT, left knee replacement, hysterectomy, left carpal tunnel repair, heart ablation for SVT, meniscus repairs bilateral knees, 02 at night, cataract surgery, chronic lower back pain, hypothyroidism, hyperparathyroidism, compression fx . - Family History Significant Family History: No pertinent family hx - Social History Smoking Status: Never smoked Alcohol Use: None Drug Use: None - Physical Exam Exam: 77 yo F alert andoriented in nad non toxic appearance, no resp distress, vss, good pulse ox, afebrile at,nc neck no jvd lungs cta bilat heart rrr not muffled, no rub abd obese nabs soft nt ext no cce left with no effusion and from, nowarmth, no erythema right knee from no increase warmth, no erythema, pos effusion with ttp suprapatella no calf tenderness , no swelling Constitutional: Initial Vital Signs Temperature (C) 36.7 C 04/25/18 10:38 Heart Rate 85 04/25/18 10:38 Respiratory Rate 18 04/25/18 10:38 Blood Pressure 177/89 H 04/25/18 10:38 O2 Sat (%) 91 L 04/25/18 10:38 O2 Delivery Mode Room Air Allergies/Adverse Reactions: omeprazole Allergy (Intermediate, Verified 04/25/18 10:34) Other-Enter Comments Antihistamines - Piperazine Allergy (Verified 04/25/18 10:34) dicyclomine HCl [From Bentyl] Allergy (Verified 04/25/18 10:34) Sulfa (Sulfonamide Antibiotics) Allergy (Verified 04/25/18 10:34) dicyclomine HCl Allergy (Unknown, Uncoded 02/02/17 20:00) ANTIBIOTICS Allergy (Uncoded 11/04/16 12:57) narcotics Allergy (Uncoded 11/04/16 12:57) Home Medications: Medication Instructions Recorded Amitriptyline HCl [Elavil 50 mg 50 mg PO HS 04/03/10 (*)] Diazepam [Valium 5 MG (*)] 2.5 mg PO PRN PRN 04/03/10 Levothyroxine [Synthroid 100 mcg 100 mcg PO DAILY06 04/03/10 (*)] Dorzolamide 2% [Trusopt 2% (*)] 1 drops LEFTEYE BID 01/16/17 Latanoprost 0.005% [Xalatan 0.005% 1 drops EACHEYE HS 01/16/17 (*)] Apixaban [Eliquis] 5 mg PO BID #60 tab 02/02/17 Metoprolol Tartrate [Lopressor 25 25 mg PO BID #60 tab 02/02/17 mg (*)] amLODIPine BESYLATE [Norvasc 2.5 2.5 mg PO DAILY #30 tab 02/02/17 mg (*)] Medical Decision Making - Diagnostics EKG Interpretation: nsr, no ischemic changes ED Course/Re-evaluation: Pt seen and evaluated for multiple symptoms. EKG nsr rate [address] elevation, qt 491 CXR bl cardiomegaly no effuisons, no infiltrate labs CBC wnl troponin neg dimer neg cmp wnl esr 33 crp 68 Pt currently asymptomatic. No clinical evidence for pericarditis. I believe the elevated CRP is secondary to her current knee inflammation. Imp right knee bursitis nonspecific atypical chest heaviness Plan dc home advise f/u with pcp and power transformer repairer in the upcoming week advise to return if symptoms return or worsen MG Differential Diagnosis: differential diagnosis considered but not limited to: mi, periocarditis, pneumonia, pulmonary embolus, pleural effusion, pleurisy - Data Points Laboratory Results: Laboratory Results 04/25/18 10:38 Point of Care Test Results: CBC CBC Collection Date 04/25/18 CBC Collection Time 10:45 WBC 7.2 RBC 4.65 HGB 13.1 HCT 39.2 PLT 283 Neut # 4.9 Neut 67.8 LYMPH # 1.6 LYMPH 22.8 Other WBC # 0.7 Other WBC 9.4 MCV 84.3 Chemistry 04/25/18 04/25/18 04/25/18 11:41 10:43 10:42 POC Sodium 143 mEq/L mEq/L (135-145) POC Potassium 3.4 mEq/L mEq/L (3.3-5.0) POC Chloride 101.0 mEq/L mEq/L (97-110) POC Total CO2 28 mEq/L mEq/L (22-31) POC BUN 14 mg/dL mg/dL (7-23) POC Creatinine 0.7 mg/dL mg/dL (0.6-1.0) POC Glucose 123 mg/dL H mg/dL (70-100) POC Calcium 9.4 mg/dL mg/dL (8.5-10.4) POC Total Bilirubin 0.7 mg/dL mg/dL (0.1-1.4) POC GGT 15 IU/L IU/L (5-65) POC AST 26 IU/L IU/L (14-46) POC ALT 15 IU/L IU/L (9-52) POC Alk Phosphatase 88 IU/L IU/L (38-126) POC Troponin I 0.00 ng/mL ng/mL (0.00-0.08) POC Total Protein 7.4 g/dL g/dL (6.3-8.2) POC Albumin 3.7 g/dL g/dL (3.5-5.0) POC Amylase 23 IU/L L IU/L (30-110) D-Dimer D-Dimer Collection Date 04/25/18 D-Dimer (ng/ml) 165 Liver Function Tests LFT Collection Date 04/25/18 Departure - Departure Disposition: Home, Routine, Self-Care Clinical Impression: Bursitis of right knee, Chest pain, atypical, History of pericarditis Condition: Good Instructions: Chest Pain (ED), Knee Bursitis (ED) Additional Instructions: Follow up with your primary care doctor and your power transformer repairer in the next 3-7 days. Return to Emergency if your symptoms are worsening. Referrals: Jacquie Nicolas MD [Primary Care Provider] - As per Instructions
[2018-04-25 13:15] VITALS: BP 138/79
== END 2018-04-25 12:50 | disposition home or self-care (01) ==
LOC: CED 10:20
DX: R07.89 Other chest pain (principal); M70.51 Other bursitis of knee, right knee; R53.83 Other fatigue; R06.02 Shortness of breath; I10 Essential (primary) hypertension
CPT/HCPCS: 71046-PO; 80048-PO; 80076-PO; 82150-PO; 84484-PO

== ENCOUNTER 2018-08-10 10:51 | Emergency (ER) | payer OTHER ==
--- NOTE | 2018-08-10 11:58 | EDPHY ---
H & P Time Seen by Provider: 08/10/18 11:03 HPI/ROS: CHIEF COMPLAINT: Cough, shortness of breath, rib pain HISTORY OF PRESENT ILLNESS: Patient states she has had approximately 24 hr feeling short of breath and lightheaded. She states that she has been congested all week and has had a cough that has been nonproductive. She states the shortness of breath she feels is with activity and not at rest. She states that yesterday her oxygen saturation was 84% so she used her oxygen during the day that she normally uses at night. This did help with symptoms. Additionally she states that she has had some urinary frequency and urgency over approximately a week. She did take some azo Standard and has been drinking cranberry juice. She has also been using Robitussin and increased use of her ProAir which helped her respiratory symptoms. She denies fever. She denies chest pain. She has had no nausea or vomiting. Contents of 10 point review of systems otherwise negative except for what is mentioned in HPI. General Appearance: Alert, no distress. Eyes: Pupils equal and round no pallor or injection. ENT, Mouth: Mucous membranes moist. Respiratory: There are no retractions, no wheezes, subtle rhonchi in the right middle/lower lobe. Some right CVA tenderness to palpation. Cardiovascular: Regular rate and rhythm. Gastrointestinal: Abdomen is soft and nontender, no masses, bowel sounds normal. Neurological: Awake alert, cranial nerves intact, normal strength sensation throughout. Skin: Warm and dry, no rashes. Musculoskeletal: Neck is supple nontender. Extremities are symmetrical, full range of motion, no edema. Psychiatric: Patient is oriented X 3, there is no agitation. Medical/surgical history: Hypertension, SVT hypothyroidism, hyperparathyroidism , pericarditis, chronic low back pain. Surgeries include left knee replacement , hysterectomy, left carpal tunnel repair, heart ablation for SVT, meniscus repair bilaterally, cataract surgery, pericardial window. Social history: Nonsmoker. Smoking Status: Never smoked Constitutional: Initial Vital Signs Temperature (C) 36.6 C 08/10/18 11:00 Heart Rate 74 08/10/18 11:00 Respiratory Rate 16 08/10/18 11:00 Blood Pressure 153/85 H 08/10/18 11:00 O2 Sat (%) 94 08/10/18 11:00 O2 Delivery Mode Room Air Allergies/Adverse Reactions: omeprazole Allergy (Intermediate, Verified 04/25/18 10:34) Other-Enter Comments Antihistamines - Piperazine Allergy (Verified 08/10/18 11:04) Pt reports palpitations ciprofloxacin Allergy (Verified 08/10/18 11:04) Pt reports "body feels like on fire" dicyclomine HCl [From Bentyl] Allergy (Verified 08/10/18 11:04) Pt reports "feeling like I'm in a tunnel" Sulfa (Sulfonamide Antibiotics) Allergy (Verified 08/10/18 11:04) Pt reports vomiting and nausea ANTIBIOTICS Allergy (Uncoded 08/10/18 11:04) Pt reports body feeling on fire, headache, chills narcotics Allergy (Uncoded 08/10/18 11:04) Pt reports nausea and drowsiness Home Medications: Medication Instructions Recorded Amitriptyline HCl [Elavil 50 mg 04/03/10 (*)] Diazepam [Valium 5 MG (*)] 04/03/10 Levothyroxine [Synthroid 100 mcg 04/03/10 (*)] Dorzolamide 2% [Trusopt 2% (*)] 01/16/17 Latanoprost 0.005% [Xalatan 0.005% 01/16/17 (*)] Apixaban [Eliquis] 08/10/18 Azithromycin [Zithromax] 250 mg PO DAILY 5 Days #6 tablet 08/10/18 Flonase Allergy Relief 08/10/18 Metoprolol Tartrate [Lopressor 25 08/10/18 mg (*)] Proair Hfa 08/10/18 amLODIPine BESYLATE [Norvasc 2.5 08/10/18 mg (*)] Medical Decision Making - Diagnostics Imaging Results: Right middle lobe infiltrate versus atelectasis. Imaging: I viewed and interpreted images myself Differential Diagnosis: Differential diagnosis includes but is not limited to pneumonia, COPD exacerbation, urinary tract infection, hypoxia. After evaluation suspicious for right middle lobe pneumonia although could represent atelectasis or exacerbation of chronic obstructive pulmonary disease. Patient has been increasing her use of albuterol and encouraged her to continue with this approach. Will give her a course of azithromycin. Not hypoxic in the emergency department and afebrile. Initial urine dip unremarkable and culture sent. Discussed home care and follow up with patient in detail. Understands return precautions. Stable for discharge. - Data Points Point of Care Test Results: Urine Dip Collection Date 08/10/18 Collection Time 11:09 Specific [place] (1.002-1.030) 1.020 PH (5.0-7.5) 7.0 Leukocytes (Negative) Negative Nitrites (Negative) Negative Protein (Negative) Negative Glucose (Negative) Negative Ketones (Negative) Negative Urobilnogen (0.2-1.0 EU) 0.2 Bilirubin (Negative) Negative Blood (Negative) Trace Departure - Departure Disposition: Home, Routine, Self-Care Clinical Impression: Pneumonia Qualifiers: Pneumonia type: due to unspecified organism Laterality: right Lung location: middle lobe of lung Qualified Code(s): J18.1 - Lobar pneumonia, unspecified organism Condition: Fair Instructions: Community Acquired Pneumonia (ED) Additional Instructions: Use her albuterol inhaler as discussed. Take the antibiotic as prescribed for 5 days. You should see your primary care physician in the next week for recheck. Return to the emergency department if symptoms progress or for other new concerns. Referrals: Jacquie Nicolas MD [Primary Care Provider] - As per Instructions Prescriptions: Azithromycin [Zithromax] 250 mg PO DAILY 5 Days #6 tablet
[2018-08-10 12:24] VITALS: BP 142/87
== END 2018-08-10 12:19 | disposition home or self-care (01) ==
LOC: CED 10:51
DX: J18.1 Lobar pneumonia, unspecified organism (principal); I10 Essential (primary) hypertension
CPT/HCPCS: 71046-PO; 99284-ER